=== PATIENT | female | born 1950 | race Caucasian/White ===

== ENCOUNTER → 2017-01-02 | Outpatient (CLI) | payer OTHER ==
[2016-08-10 11:00] VITALS: BP 106/68
[~2017-01-02] MED LIST: ALPR0.254 PO; ALPR1TAB6 PO; AZEL205. NS; BUTA1CAP5 PO; ERGO500027 PO; ESCITALOPRAM OX20 MG PO; FURO20TA3 PO; FURO40TA4 PO; ISOS30TA4 PO; LANS30CA PO; LEXAPRO5 MG PO; LIPA1CAP PO; MECL12.52 PO; MECL25TA3 PO; METH4TAB2 PO; QUIN10TA15 PO; QUIN20TA17 PO; SOTA80TA48 PO; TIZA4CAP3 PO; TIZA4TAB PO; TRAM50TA PO; WARF5TAB7 PO; XOPENEX0.63 MG/3 NEB
--- NOTE | 2017-01-02 15:31 | KCIC ---
Left breast diagnostic ultrasound HISTORY: Asymmetric tissue density in the posterior upper outer left breast seen in the December 23, 2016 mammogram Sonographic examination upper left breast was performed and multiple static images were obtained. There is no focal abnormality. IMPRESSION: Negative examination. Recommend a left mammogram in 6 months to assess stability. These results were given to the patient in person. BI-RADS Category 3: Probably Benign. Electronically signed by: Lambert Gomez III, MD (01/02/2017 3:27 PM) [facility]
--- NOTE | 2017-01-02 15:32 | KCIC ---
History: asymmetric tissue density posterior upper outer left breast on the December 23, 2016 mammogram. Technique: The following digital mammographic additional views were obtained: spot CC spot MLO open mag cc. Computer aided detection was utilized with iCAD Second Look 7.2-H Comparison: April 15, 2013 Findings: The asymmetric tissue density persists but appears to be a normal lymph node. Recommend a left mammogram in 6 months to assess stability. These results were given to the patient in person. BI-RADS Category 3: Probably Benign. These results were given to the patient in person. Patient information is entered into the [facility] reminder system using [employer] with a target due date for the next screening mammogram. The patient will receive a reminder. A mammogram does not have 100% sensitivity and therefore a negative imaging study should not delay further work up of a suspicious abnormality. "Our facility is accredited by the [employer] Mammography Program." Electronically signed by: Lambert Gomez III, MD (01/02/2017 3:29 PM) [facility]
== END | disposition home or self-care (01) ==
LOC: KCIC MAMMO 13:59
PROVIDERS: ATTEND Family Medicine
DX: N64.89 Other specified disorders of breast (principal)
CPT/HCPCS: 76641; G0206; 77065

== ENCOUNTER → 2017-06-11 | Outpatient (CLI) | payer OTHER | END | disposition home or self-care (01) | LOC: KCIC MAMMO 09:43 | DX: N64.89 Other specified disorders of breast (principal) | CPT/HCPCS: 77065; G0279 ==

== ENCOUNTER 2018-04-09 13:45 | Emergency (ER) | payer OTHER ==
[~2018-04-09] VITALS: Ht 165.1 cm; Wt 88.9 kg
[~2018-04-09 13:45] MED LIST changes: +WARF-31 PO; -WARF5TAB7 PO
[2018-04-09 13:55] VITALS: BP 123/72
[2018-04-09] MEDS ORDERED: fentaNYL PF VIAL 100 MCG/2 ML VIAL IV ONE (14:30)
[2018-04-09] MEDS ORDERED: KETOROLAC 30 MG/ML VIAL. IV ONE (14:30)
--- NOTE | 2018-04-09 15:21 | RAD ---
Examination: 4 views of the left knee HISTORY: History of fall on the left knee, pain COMPARISON: None available. FINDINGS: The alignment of the left knee joint grossly appears unremarkable. There is no acute fracture or dislocation identified.No significant knee joint effusion identified IMPRESSION: No acute osseous findings. Electronically signed by: Noe Will MD (04/09/2018 3:19 PM) [facility]
[2018-04-09 16:01] LABS: BASO % 1 % (0-3); EOS # 0.2 x10^3/uL (0.0-0.7); EOS % 3 % (0-3); HEMATOCRIT 39.9 % (36.0-47.0); HEMOGLOBIN 13.3 g/dL (12.0-15.5); LYMPH # 1.7 x10^3/uL (1.0-4.8); LYMPH % 27 % (24-48); MEAN CORPUSCULAR HEMOGLOBIN 30 pg (25-35); MEAN CORPUSCULAR HGB CONC 33 g/dL (31-37); MEAN CORPUSCULAR VOLUME 91 fL (79-100); MONO # 0.6 x10^3/uL (0.0-1.1); MONO % 9 % (0-9); NEUT # 3.8 x10^3uL (1.8-7.7); NEUT % 60 % (31-73); PLATELET COUNT 209 x10^3/uL (140-400); RED BLOOD COUNT 4.38 x10^6/uL (3.50-5.40); RED CELL DISTRIBUTION WIDTH 14.1 % (11.5-14.5); WHITE BLOOD COUNT 6.3 x10^3/uL (4.0-11.0)
[2018-04-09 16:07] LABS: CALCIUM 8.7 mg/dL (8.5-10.1); CREATININE 1.1 mg/dL (0.6-1.0); GFR 49.4; POTASSIUM 3.6 mmol/L (3.5-5.1)
[2018-04-09] MEDS ORDERED: TRAM50TA PO (16:39)
--- NOTE | 2018-04-09 16:39 | PHYS DOC ---
Past Medical History Past Medical History: A-Fib, Anxiety, Depression, GERD, Hypertension, Migraines Additional Past Medical Histor: vertigo, pancrease problems, lupus (SHASHANK URIBE APRN) Past Surgical History: Appendectomy, Cholecystectomy Additional Past Surgical Histo: pacemaker, clean heart cath (SHASHANK URIBE APRN) Alcohol Use: None Drug Use: None (SHASHANK URIBE APRN) Adult General Chief Complaint Chief Complaint: LOWER EXT PAIN HPI HPI Patient is a 67 year old female with history of anxiety, hypertension, depression, A. fib, who presents today complaining of 7 out of 10 pain behind her left knee that radiates to the calf that has been going on for weeks. Patient states she was seen by a disability aide, she states the disability aide did not do anything for her. Patient states today she was taking a shower and her knee buckled up and she fell. Patient denies any loss of consciousness. Patient describes the pain as sharp and intermittent worse on flexion of the knee. (SHASHANK URIBE APRN) Review of Systems Review of Systems Constitutional: Denies fever or chills [] Eyes: Denies change in visual acuity, redness, or eye pain [] HENT: Denies nasal congestion or sore throat [] Respiratory: Denies cough or shortness of breath [] Cardiovascular: No additional information not addressed in HPI [] GI: Denies abdominal pain, nausea, vomiting, bloody stools or diarrhea [] : Denies dysuria or hematuria [] Musculoskeletal: Reports left knee pain radiating to the left calf. Integument: Denies rash or skin lesions [] Neurologic: Denies headache, focal weakness or sensory changes [] All other systems were reviewed and found to be within normal limits, except as documented in this note. (SHASHANK URIBE APRN) Current Medications Current Medications Current Medications Medications (Trade) Dose Ordered Sig/Silverio Start Time Stop Time Status Last Admin Dose Admin Fentanyl Citrate (Fentanyl 2ml Vial) 50 mcg 1X ONCE 04/09/18 14:30 04/09/18 14:31 DC 04/09/18 15:54 50 MCG Ketorolac Tromethamine (Toradol 30mg Vial) 30 mg 1X ONCE 04/09/18 14:30 04/09/18 14:32 DC 04/09/18 15:53 30 MG (KYLE OCHOA MD) Allergies Allergies Allergies Coded Allergies Type Severity Reaction Last Updated Verified Penicillins Allergy Intermediate 04/12/14 Yes acetaminophen Allergy Intermediate 04/12/14 Yes aripiprazole Allergy Intermediate 04/12/14 Yes celecoxib Allergy Intermediate 04/12/14 Yes citalopram Allergy Intermediate 11/24/14 Yes clindamycin Allergy Intermediate 04/12/14 Yes codeine Allergy Intermediate 04/12/14 Yes fluticasone Allergy Intermediate 04/12/14 Yes hydrocodone Allergy Intermediate 04/12/14 Yes levofloxacin Allergy Intermediate 04/12/14 Yes nalbuphine Allergy Intermediate 04/12/14 Yes salmeterol Allergy Intermediate 04/12/14 Yes (KYLE OCHOA MD) Physical Exam Physical Exam Constitutional: Well developed, well nourished, no acute distress, non-toxic appearance. [] HENT: Normocephalic, atraumatic, bilateral external ears normal, oropharynx moist, no oral exudates, nose normal. [] Eyes: PERRLA, EOMI, conjunctiva normal, no discharge. [] Neck: Normal range of motion, no tenderness, supple, no stridor. [] Cardiovascular:Heart rate regular rhythm, no murmur [] Lungs & Thorax: Bilateral breath sounds clear to auscultation [] Abdomen: Bowel sounds normal, soft, no tenderness, no masses, no pulsatile masses. [] Skin: Warm, dry, no erythema, no rash. [] Back: No tenderness, no CVA tenderness. [] Extremities: Left knee with no obvious deformity. Slight tenderness on palpation of the posterior aspect of the knee. Negative Jd sign, negative Janee sign, negative anterior-posterior drawer sign to the knee though pain was elicited during flexion of the knee. Negative Homans sign to the left lower extremity. +2 left pedal pulse. Cap refill less than 2 seconds the left knee. Neurologic: Alert and oriented X 3, normal motor function, normal sensory function, no focal deficits noted. [] Psychologic: Affect normal, judgement normal, mood normal. [] (SHASHANK URIBE APRN) Current Patient Data Vital Signs Vital Signs Date Time Temp Pulse Resp B/P (MAP) Pulse Ox O2 Delivery O2 Flow Rate FiO2 04/09/18 15:54 16 99 Room Air 04/09/18 13:55 98.5 73 123/72 (89) 98.5 (KYLE OCHOA MD) Lab Values Laboratory Tests Test 04/09/18 15:48 White Blood Count 6.3 x10^3/uL (4.0-11.0) Red Blood Count 4.38 x10^6/uL (3.50-5.40) Hemoglobin 13.3 g/dL (12.0-15.5) Hematocrit 39.9 % (36.0-47.0) Mean Corpuscular Volume 91 fL (79-100) Mean Corpuscular Hemoglobin 30 pg (25-35) Mean Corpuscular Hemoglobin Concent 33 g/dL (31-37) Red Cell Distribution Width 14.1 % (11.5-14.5) Platelet Count 209 x10^3/uL (140-400) Neutrophils (%) (Auto) 60 % (31-73) Lymphocytes (%) (Auto) 27 % (24-48) Monocytes (%) (Auto) 9 % (0-9) Eosinophils (%) (Auto) 3 % (0-3) Basophils (%) (Auto) 1 % (0-3) Neutrophils # (Auto) 3.8 x10^3uL (1.8-7.7) Lymphocytes # (Auto) 1.7 x10^3/uL (1.0-4.8) Monocytes # (Auto) 0.6 x10^3/uL (0.0-1.1) Eosinophils # (Auto) 0.2 x10^3/uL (0.0-0.7) Basophils # (Auto) 0.0 x10^3/uL (0.0-0.2) Sodium Level 141 mmol/L (136-145) Potassium Level 3.6 mmol/L (3.5-5.1) Chloride Level 106 mmol/L (98-107) Carbon Dioxide Level 28 mmol/L (21-32) Anion Gap 7 (6-14) Blood Urea Nitrogen 17 mg/dL (7-20) Creatinine 1.1 mg/dL (0.6-1.0) H Estimated GFR (Cockcroft-Gault) 49.4 Glucose Level 91 mg/dL (70-99) Calcium Level 8.7 mg/dL (8.5-10.1) Laboratory Tests 2/14/19 15:48 Laboratory Tests 04/09/18 15:48 (KYLE OCHOA MD) EKG EKG [] (SHASHANK URIBE APRN) Radiology/Procedures Radiology/Procedures [] (SHASHANK URIBE APRN) Course & Med Decision Making Course & Med Decision Making Pertinent Labs and Imaging studies reviewed. (See chart for details) This is a 67-year-old. Patient presented to the ED today with left knee pain radiating to her cough that has been going on for weeks. She also fell on her knee today. Left knee x-rays interpreted by radiologist are negative for any acute findings. Apply regularly read venous Doppler left lower extremity is negative. Patient was provided orthopedic doctor for follow-up as an outpatient. D/c with tramadol. (SHASHANK URIBE APRN) Course & Med Decision Making Staff Physician Addendum: I was working in the ER during the course of this patient's visit. I was available for consultation as needed, but I was not directly involved in the care of this patient. (KYLE OCHOA MD) Dragon Disclaimer Dragon Disclaimer This electronic medical record was generated, in whole or in part, using a voice recognition dictation system. (SHASHANK URIBE APRN) Departure Departure Impression: Primary Impression: Left knee pain Additional Impression: Fall from standing Disposition: 01 HOME, SELF-CARE Condition: STABLE Referrals: TERESITA DOS SANTOS MD (PCP) NEAL AKINS II, MD Follow up in one week Patient Instructions: Fall Prevention and Home Safety, Knee Pain, [id number] Additional Instructions: You were evaluated in the emergency room for knee pain. Your left knee x-ray was negative for any acute findings, your venous Doppler of the left lower extremity was negative for a blood clot. Ice and elevate the extremity. Follow- up with the provided orthopedic doctor or your own doctor in one week. Take the prescribed medications as needed for pain. Scripts Tramadol Hcl (TRAMADOL HCL) 50 Mg Tablet 50 MG PO Q6HRS PRN for PAIN, #30 TAB Prov: SHASHANK URIBE APRN 04/09/18 Problem Qualifiers Primary Impression: Left knee pain Chronicity: acute Qualified Codes: M25.562 - Pain in left knee Additional Impression: Fall from standing Encounter type: initial encounter Qualified Codes: W19.XXXA - Unspecified fall, initial encounter SHASHANK URIBE APRN Apr 09, 2018 16:39 KYLE OCHOA MD Apr 09, 2018 17:38
--- NOTE | 2018-04-10 08:31 | RAD ---
Left lower extremity venous ultrasound, 04/09/2018 : History: Left lower extremity pain Duplex evaluation including grayscale, color flow and spectral Doppler analysis was performed. The femoral and popliteal veins show no filling defects to suggest DVT. The visualized calf veins are unremarkable. IMPRESSION: There is no sonographic evidence of deep vein thrombosis in the left lower extremity Electronically signed by: Emmanuel Fontanez MD (04/10/2018 8:28 AM) [facility]
== END 2018-04-09 16:52 | disposition home or self-care (01) ==
LOC: ER 13:45
DX: M25.562 Pain in left knee (principal); G89.11 Acute pain due to trauma; I48.91 Unspecified atrial fibrillation; K21.9 Gastro-esophageal reflux disease without esophagitis; I10 Essential (primary) hypertension; G43.909 Migraine, unspecified, not intractable, without status migrainosus; M79.605 Pain in left leg; Z95.0 Presence of cardiac pacemaker; Z88.0 Allergy status to penicillin; Z88.1 Allergy status to other antibiotic agents; Z88.5 Allergy status to narcotic agent; Z88.6 Allergy status to analgesic agent; Z88.8 Allergy status to other drugs, medicaments and biological substances; W18.39XA Other fall on same level, initial encounter; Y93.89 Activity, other specified; Y92.89 Other specified places as the place of occurrence of the external cause; Y99.8 Other external cause status
CPT/HCPCS: 36415; 73564; 80048; 85025; 93971; 96374; 96375; 99284; J1885; J3010

== ENCOUNTER → 2018-06-01 | Outpatient (CLI) | payer OTHER ==
--- NOTE | 2018-06-01 17:08 | KCIC ---
Bilateral diagnostic digital mammograms with 3-D tomosynthesis: Reason for examination: Follow-up nodular asymmetric parenchyma. Comparison is made to previous studies dated back to 03/02/2015. Bilateral mammograms in CC and oblique projections were obtained with 2-D imaging and 3-D tomosynthesis imaging on a Siemens Inspiration unit and reviewed on the workstation. Interpretation was made with the benefit of CAD. The skin and nipples show no abnormalities. No abnormal axillary lymph nodes are seen. The breast parenchyma shows scattered fatty and fibroglandular density. (Breast density: Category B.) There continues to be some parenchymal asymmetry posteriorly at the 2:00 C position of the left breast which is stable. There are small intramammary lymph nodes. There are no new dominant masses, suspicious calcifications or architectural distortion. Impression: No evidence of malignancy. Recommend routine screening. BI-RAD Category 2: Benign. "Our facility is accredited by the [employer] Mammography Program." This patient's information has been entered into a reminder system for the patient to be notified with the results of her examination and a target date for the next mammogram. Electronically signed by: Mone Pham MD (06/01/2018 5:05 PM) [facility]
== END | disposition home or self-care (01) ==
LOC: KCIC MAMMO 12:34
PROVIDERS: ATTEND Family Medicine
DX: R92.8 Other abnormal and inconclusive findings on diagnostic imaging of breast (principal)
CPT/HCPCS: 77066; G0279; 77062

== ENCOUNTER → 2019-04-14 | Outpatient (CLI) | payer MEDICARE ==
[~2019-04-14] MED LIST changes: +ASPI325T11 PO; +ERGO400T2 PO; +IBUP-1060 PO; +LEXAPRO20 MG PO; +MECL-75 PO; -MECL12.52 PO; +MECL12.573 PO; -MECL25TA3 PO; +REGADENOSON 0.4 MG/5 ML DISP.SYRIN. IV ONE; -TIZA4TAB PO; +TIZA4TAB2 PO
--- NOTE | 2019-04-15 13:36 | CARD ---
MR#: [id number] Date of Study: 04/14/2019 Ordering Physician: BROOKLYNN BELLE, Referring Physician: BROOKLYNN BELLE, Tech: Delmer Willingham RDCS APPROVED REPORT EXAM: Two-dimensional and M-mode echocardiogram with Doppler and color Doppler. Other Information Quality : AverageHR: 87bpm INDICATION SSS 2D DIMENSIONS RVDd3.1 (2.9-3.5cm)Left Atrium(2D)3.0 (1.6-4.0cm) IVSd1.2 (0.7-1.1cm)Aortic Root(2D)2.7 (2.0-3.7cm) LVDd4.6 (3.9-5.9cm)LVOT Diameter2.1 (1.8-2.4cm) PWd1.2 (0.7-1.1cm)LVDs2.8 (2.5-4.0cm) FS (%) 39.3 %SV68.8 ml Aortic Valve AoV Peak Robert.100.1cm/Katt Peak GR.4.0mmHg LVOT Peak Robert.80.6cm/sAVA (VMAX)2.90cm2 Mitral Valve MV E Tmovkukq21.1cm/sMV DECEL TLYK343rx MV A Oojaqdaa71.4cm/sE/A Ratio0.7 MV A Wnfumgrc368ki Pulmonary Valve PV Peak Czkkhevw22.0cm/s Tricuspid Valve TR P. Jddzajlr826uh/sRAP NDNKKWZR0mjJa TR Peak Gr.94ubBxEIEA31xxDy Pulmonary Vein S1 Oqlskcda88.1cm/sD2 Xwhtxztc83.9cm/s PVa nwopucsb848wshh LEFT VENTRICLE The left ventricle is normal size. There is mild concentric left ventricular hypertrophy. The left ve ntricular systolic function is normal and the ejection fraction is within normal range. The Ejection Fraction is 55-60%. There is normal LV segmental wall motion. Transmitral Doppler flow pattern is Gra de I-abnormal relaxation pattern. There is no ventricular septal defect visualized. RIGHT VENTRICLE The right ventricle is normal size. The right ventricular systolic function is normal. ATRIA The left atrium size is normal. The right atrium size is normal. The interatrial septum is intact wit h no evidence for an atrial septal defect or patent foramen ovale as noted on 2-D or Doppler imaging. AORTIC VALVE The aortic valve is normal in structure and function. Doppler and Color Flow revealed no significant aortic regurgitation. There is no significant aortic valvular stenosis. MITRAL VALVE The mitral valve is normal in structure and function. There is no mitral valve stenosis. Doppler and Color-flow revealed trace to mild mitral regurgitation. TRICUSPID VALVE The tricuspid valve is normal in structure and function. Doppler and Color Flow revealed mild tricusp id regurgitation. PAP is estimated at 23 mmHg. There is no tricuspid valve stenosis. PULMONIC VALVE The pulmonary valve is normal in structure and function. Doppler and Color Flow revealed mild to mode rate pulmonic valvular regurgitation. There is no pulmonic valvular stenosis. GREAT VESSELS The aortic root is normal in size. The ascending aorta is normal in size. The pulmonary artery is nor mal. The IVC is normal in size and collapses >50% with inspiration. PERICARDIAL EFFUSION There is no pleural effusion. There is no evidence of significant pericardial effusion. Critical Notification Critical Value: No <Conclusion> The left ventricle is normal size. The left ventricular systolic function is normal and the ejection fraction is within normal range. The Ejection Fraction is 55-60%. There is mild concentric left ventricular hypertrophy. Doppler and Color Flow revealed no significant aortic regurgitation. There is no significant aortic valvular stenosis. Doppler and Color-flow revealed trace to mild mitral regurgitation. Doppler and Color Flow revealed mild tricuspid regurgitation. PAP is estimated at 23 mmHg. Signed by : Jim Smart MD Electronically Approved : 04/14/2019 13:33:18
--- NOTE | 2019-04-16 12:17 | RAD ---
MR#: [id number] Date of Study: 04/14/2019 Ordering Physician: BROOKLYNN BELLE, Referring Physician: CHENG MINOR Tech: RT Saundra Ramirez) (N) APPROVED REPORT Test Type: Pharmacological Stress Nurse/Tech: Marcela ERVIN Test Indications: Sick Sinus Syndrome Cardiac History: A-fib, SSS, PPM, HTN, See EMR. Medications: Coumadin, See EMR. Medical History: X-Smoker, CVA, See EMR. Resting ECG: Paced Resting Heart Rate: 66 bpm Resting Blood Pressure: 140/87mmHg Pretest Chest Pain: No chest pain Nurse/Tech Notes Lungs diminished throughout, heart tones regular. Consent: The procedure was explained to the patient in lay terms. Informed consent was witnessed. Keegan eout was entered into [employer]. History and Stress Test performed by RT James (Leonardo) (N) Pharm. Details Pharmacologic stress testing was performed using 0.4mg per 5ml of regadenoson given intravenously ove r 7-10 seconds. Stress Symptoms No chest pain or symptoms. POST EXERCISE Reason for Termination: Infusion complete Max HR: 73 bpm Max Blood Pressure: 129/78mmHg Blood Pressure response to exercise: Normal blood pressure response during stress. Heart Rate response to exercise: WNL Chest Pain: No. Arrhythmia: No. ST Change: No. INTERPRETATION Stress EKG Conclusion: No evidence of stress induced EKG changes. Imaging Protocol IMAGE PROTOCOL: Rest Tc-99m/stress Tc-99m 1 day Rest: Stress: Viability: Radiopharm.Tc99m JtzzamonaYp08u Sestamibi Jyir61yRr 32.3mCi Duration 15min. 10min. Img Date 04/14/2019 04/14/2019 Inj-Img Djer10fti. 60min. Rest Admin Site:IV - Left AntecubitalAdministrator:RT James (Leonardo)(N) Stress Admin Site: IV - Left AntecubitalAdministrator: RT Antonella (Leonardo)(N) STRESS DATA End Diast. Vol.67.0mlAv. Heart Rate65.0bpm End Syst. Vol.16.0mlCO Index BSA0.0L/min Myocardial Hhmt174.0gEject. Qwzxqvkm88.0% Stress Rates Pk. Fill Rate3.62EDV/secLVtime Pk. Fill 228.01msec Pk. Empty Rate4.14ESV/secLVtime Pk. Dkfzd022.98msec 1/3 Pk. Fill1.01EDV/sec Stress Scores Regional WT0.00Summed WT1.00 Regional WM0.00Summed WM1.00 LV Perfusion Normal perfusion at stress. Wall Motion Normal wall motion. LV Perf. Quant 17 Seg. SSS0.00 17 Seg. SRS8.00 17 Seg. SDS0.00 Stress Defect Extent (% LAD)0.00Rest Defect Extent (% LAD)18.10Rev. Defect Extent (% LAD)0.00 Stress Defect Extent (% LCX) 0.00Rest Defect Extent (% LCX)26.30Rev. Defect Extent (% LCX)0.00 Stress Defect Extent (% RCA)0.00Rest Defect Extent (% RCA)2.20Rev. Defect Extent (% RCA)0.00 Stress Defect Extent (% LAURA)0.00Rest Defect Extent (% LAURA)15.90Rev. Defect Extent (% LAURA)0.00 Other Information Quality:Fair Risk Assessment: Low Risk Conclusion 1. No evidence of EKG changes with stress testing. 2. Normal perfusion at stress. Rest images are suboptimal due to artifact. 3. Low risk study. 4. EF > 60%. Signed by : Asim Burns, Electronically Approved : 04/16/2019 12:17:20
== END | disposition home or self-care (01) ==
LOC: NM 09:28
PROVIDERS: ATTEND Internal Medicine Cardiovascular Disease
DX: I08.8 Other rheumatic multiple valve diseases (principal); I11.9 Hypertensive heart disease without heart failure; I49.5 Sick sinus syndrome; I48.91 Unspecified atrial fibrillation; Z87.81 Personal history of (healed) traumatic fracture; Z86.73 Personal history of transient ischemic attack (TIA), and cerebral infarction without residual deficits
CPT/HCPCS: 78452; 93017; 93306; A9500; J2785

== ENCOUNTER → 2019-06-25 | Outpatient (CLI) | payer MEDICARE ==
[~2019-06-25] MED LIST changes: -REGADENOSON 0.4 MG/5 ML DISP.SYRIN. IV ONE
--- NOTE | 2019-06-25 15:45 | RAD ---
CT Head W/O Contrast: History: Headache, severe memory loss Comparison: none Axial images were obtained without contrast. The marcos and white matter appears normal and symmetrical for the patients age. There is no mass effect, extraaxial fluid collections or hydrocephalus. There is no gross bleed. There is no focal loss of marcos-white matter distinction to suggest acute ischemia, i.e. stroke. Impression: No acute findings. RS Compliance Statement: One or more of the following individualized dose reduction techniques were utilized for this examination: 1. Automated exposure control 2. Adjustment of the mA and/or kV according to patient size 3. Use of iterative reconstruction technique Electronically signed by: Lambert Gomez III, MD (06/25/2019 3:42 PM) [id number]
== END | disposition home or self-care (01) ==
LOC: CT 14:26
PROVIDERS: ATTEND Family Medicine
DX: G43.909 Migraine, unspecified, not intractable, without status migrainosus (principal)
CPT/HCPCS: 70450

== ENCOUNTER 2019-08-28 13:50 | Emergency (ER) | payer MEDICARE ==
[~2019-08-28] VITALS: Ht 170.2 cm; Wt 67.0 kg
[2019-08-28 14:24] LABS: BASO # 0.1 x10^3/uL (0.0-0.2); BASO % 1 % (0-3); EOS % 1 % (0-3); HEMATOCRIT 37.1 % (36.0-47.0); HEMOGLOBIN 12.9 g/dL (12.0-15.5); LYMPH % 12 % (24-48); MEAN CORPUSCULAR HEMOGLOBIN 32 pg (25-35); MEAN CORPUSCULAR HGB CONC 35 g/dL (31-37); MEAN CORPUSCULAR VOLUME 92 fL (79-100); MONO # 0.5 x10^3/uL (0.0-1.1); MONO % 6 % (0-9); NEUT # 6.9 x10^3/uL (1.8-7.7); NEUT % 81 % (31-73); PLATELET COUNT 184 x10^3/uL (140-400); RED BLOOD COUNT 4.05 x10^6/uL (3.50-5.40); RED CELL DISTRIBUTION WIDTH 14.3 % (11.5-14.5); WHITE BLOOD COUNT 8.5 x10^3/uL (4.0-11.0)
[2019-08-28 14:41] LABS: PROTHROMBIN TIME PATIENT 73.8 SEC (11.7-14.0)
[2019-08-28] MEDS ORDERED: PHENYLEPHRINE 0.5% NASAL SPRAY 15ML BOTTLE. NS ONE (15:15)
[2019-08-28] MEDS ORDERED: ONDANSETRON PF 4 MG/2 ML VIAL. IV ONE (15:15)
--- NOTE | 2019-08-28 16:28 | PHYS DOC ---
Past Medical History Past Medical History: A-Fib, Anxiety, Depression, GERD, Hypertension, Migraines Additional Past Medical Histor: vertigo, pancrease problems, lupus Past Surgical History: Appendectomy, Cholecystectomy Additional Past Surgical Histo: pacemaker, clean heart cath Smoking Status: Former Smoker Alcohol Use: None Drug Use: None General Adult EDM: Chief Complaint: NOSEBLEED HPI: HPI: Patient is a 68 year old male who presents to the emergency department with complaints of bleeding from the left side of her nose. Patient states she awoke with the bleeding. She also reports that her warfarin dose was recently increased from 5 mg a day up to 7.5 mg/day. She has not had her INR rechecked since having the dose of the medication increased. Patient denies any injury to her nose. She denies any headache, vision changes, dizziness, vomiting, abdominal pain, shortness of breath, cough, fever, chest pain, or palpitations. She reports nausea at this time, she thinks it is due to the constant flow of blood down the back of her throat. Patient currently denies any pain. Review of Systems: Review of Systems: Constitutional: Denies fever or chills. [] Eyes: Denies change in visual acuity. [] HENT: Denies sore throat, reports nasal congestion; see HPI [] Respiratory: Denies cough or shortness of breath. [] Cardiovascular: Denies chest pain or edema. [] GI: Denies abdominal pain, vomiting, or diarrhea; see HPI. [] Musculoskeletal: Denies back pain or joint pain. [] Integument: Denies rash. [] Neurologic: Denies headache, focal weakness or sensory changes. [] Psychiatric: Denies depression or anxiety. [] Heart Score: Risk Factors: Risk Factors: DM, Current or recent (<one month) smoker, HTN, HLP, family history of CAD, obesity. Risk Scores: Score 0 - 3: 2.5% MACE over next 6 weeks - Discharge Home Score 4 - 6: 20.3% MACE over next 6 weeks - Admit for Clinical Observation Score 7 - 10: 72.7% MACE over next 6 weeks - Early Invasive Strategies Current Medications: Current Medications Medications (Trade) Dose Ordered Sig/Silverio Start Time Stop Time Status Last Admin Dose Admin Ondansetron HCl (Zofran) 4 mg 1X ONCE 08/28/19 15:15 08/28/19 15:16 DC 08/28/19 15:14 4 MG Phenylephrine HCl (Bobby-Synephrine 0.5% Nasal) 2 spray 1X ONCE 08/28/19 15:15 08/28/19 15:16 DC 08/28/19 15:40 2 SPRAY Allergies: Allergies: Allergies Coded Allergies Type Severity Reaction Last Updated Verified Penicillins Allergy Intermediate 04/12/14 Yes acetaminophen Allergy Intermediate 04/12/14 Yes aripiprazole Allergy Intermediate 04/12/14 Yes celecoxib Allergy Intermediate 04/12/14 Yes citalopram Allergy Intermediate 11/24/14 Yes clindamycin Allergy Intermediate 04/12/14 Yes codeine Allergy Intermediate 04/12/14 Yes fluticasone Allergy Intermediate 04/12/14 Yes hydrocodone Allergy Intermediate 04/12/14 Yes levofloxacin Allergy Intermediate 04/12/14 Yes nalbuphine Allergy Intermediate 04/12/14 Yes salmeterol Allergy Intermediate 04/12/14 Yes Physical Exam: PE: Constitutional: Well developed, well nourished, no acute distress, non-toxic appearance. [] HENT: Normocephalic, atraumatic, bilateral external ears normal, oropharynx moist, no oral exudates; there is blood draining down the left posterior pharynx, no anterior nosebleed, bilateral nasal turbinates are edematous Eyes: PERRLA, EOMI, conjunctiva normal, no discharge. [] Neck: Normal range of motion, no tenderness, supple, no stridor. [] Cardiovascular:Heart rate regular rhythm Lungs & Thorax: Respirations even and unlabored, no retractions, no respiratory distress Skin: Warm, dry, no erythema, no rash. [] Extremities: No cyanosis, ROM intact, no edema. [] Neurologic: Alert and oriented X 3, no focal deficits noted. [] Psychologic: Affect normal, judgement normal, mood normal. [] Current Patient Data: Labs: Laboratory Tests Test 08/28/19 14:13 White Blood Count 8.5 x10^3/uL (4.0-11.0) Red Blood Count 4.05 x10^6/uL (3.50-5.40) Hemoglobin 12.9 g/dL (12.0-15.5) Hematocrit 37.1 % (36.0-47.0) Mean Corpuscular Volume 92 fL (79-100) Mean Corpuscular Hemoglobin 32 pg (25-35) Mean Corpuscular Hemoglobin Concent 35 g/dL (31-37) Red Cell Distribution Width 14.3 % (11.5-14.5) Platelet Count 184 x10^3/uL (140-400) Neutrophils (%) (Auto) 81 % (31-73) H Lymphocytes (%) (Auto) 12 % (24-48) L Monocytes (%) (Auto) 6 % (0-9) Eosinophils (%) (Auto) 1 % (0-3) Basophils (%) (Auto) 1 % (0-3) Neutrophils # (Auto) 6.9 x10^3/uL (1.8-7.7) Lymphocytes # (Auto) 1.0 x10^3/uL (1.0-4.8) Monocytes # (Auto) 0.5 x10^3/uL (0.0-1.1) Eosinophils # (Auto) 0.0 x10^3/uL (0.0-0.7) Basophils # (Auto) 0.1 x10^3/uL (0.0-0.2) Prothrombin Time 73.8 SEC (11.7-14.0) H Prothrombin Time INR 8.6 (0.8-1.1) *H Laboratory Tests 08/28/19 14:13 Vital Signs: Vital Signs Date Time Temp Pulse Resp B/P (MAP) Pulse Ox O2 Delivery O2 Flow Rate FiO2 08/28/19 16:05 64 13 98 08/28/19 13:53 98.4 152/89 (110) Room Air 98.4 EKG: EKG: [] Radiology/Procedures: Radiology/Procedures: [] Course & Med Decision Making: Course & Med Decision Making Pertinent Labs and Imaging studies reviewed. (See chart for details) Patient is a 68-year-old female who presents to the emergency department with complaints of left-sided nasal bleed, she reported a recent increase in her warfarin dosage. CBC is unremarkable, PT/INR reveals a INR of 8.6. I administered phenylephrine nasal spray into the left side of the patient's nose then inserted a Rhino Rocket for a nasal packing into the left nare. The nasal bleeding ceased, patient tolerated procedure well, no complications. I encouraged patient to hold her Coumadin for the next 2 days, follow-up with her primary care doctor on Friday to have the nasal packing removed and her INR rechecked. Advised the patient and her family member to return to the emergency room if the bleeding returns or if her symptoms worsen. Patient and her daughter verbalized an understanding of home care, medications, follow-up, and return to ED instructions and were in agreement with the plan of care. [] Dragon Disclaimer: Dragon Disclaimer: This electronic medical record was generated, in whole or in part, using a voice recognition dictation system. Departure Departure Impression: Primary Impression: Acute posterior epistaxis Additional Impression: Supratherapeutic INR Disposition: HOME, SELF-CARE Condition: STABLE Referrals: TERESITA DOS SANTOS MD (PCP) Patient Instructions: Nosebleed, [id number], Warfarin Coagulopathy Additional Instructions: DO NOT TAKE YOUR WARFARIN FOR THE NEXT 2 DAYS. Follow up with your primary care doctor on Friday to have the nasal packing removed and your INR rechecked. Today your INR was 8.6. Return to the ER if your symptoms worsen. Justicifation of Admission Dx: Justifications for Admission: Justification of Admission Dx: N/A AJAY DYSON APRN Aug 28, 2019 16:28
[2019-08-28 16:35] VITALS: BP 155/79
== END 2019-08-28 16:42 | disposition home or self-care (01) ==
LOC: ER 13:50
DX: R04.0 Epistaxis (principal); R79.1 Abnormal coagulation profile; I48.91 Unspecified atrial fibrillation; K21.9 Gastro-esophageal reflux disease without esophagitis; I10 Essential (primary) hypertension; G43.909 Migraine, unspecified, not intractable, without status migrainosus; M32.9 Systemic lupus erythematosus, unspecified; Z87.891 Personal history of nicotine dependence; Z95.0 Presence of cardiac pacemaker; Z88.0 Allergy status to penicillin; Z88.1 Allergy status to other antibiotic agents; Z88.5 Allergy status to narcotic agent; Z88.6 Allergy status to analgesic agent; Z88.8 Allergy status to other drugs, medicaments and biological substances
CPT/HCPCS: 30905; 36415; 85025; 85610; 96374; 99285; J2405

== ENCOUNTER 2019-08-31 10:20 | Inpatient (IN) | payer MEDICARE ==
[~2019-08-31] VITALS: Ht 165.1 cm; Wt 86.4 kg
--- NOTE | 2019-08-31 10:47 | PHYS DOC ---
Past Medical History Past Medical History: A-Fib, Anxiety, Depression, GERD, Hypertension, Migraines Additional Past Medical Histor: vertigo, pancrease problems, lupus Past Surgical History: Appendectomy, Cholecystectomy Additional Past Surgical Histo: pacemaker, clean heart cath Smoking Status: Former Smoker Alcohol Use: None Drug Use: None General Adult EDM: Chief Complaint: ABNORMAL LABS HPI: HPI: Patient is a 68 year old female who presents with patient was here on August 27 for a nosebleed. At that time it was found that her INR was 8.6. Patient is on warfarin for her A. fib and she does have a pacemaker. Patient was told not to take her warfarin. Patient has not taken her warfarin for 3 days. Patient went to her primary care today Dr. Dos Santos of which her INR is still above 8. She was sent here to the emergency room. Patient still has a nasal balloon in place in the left nare. Patient was not placed on any antibiotics. Patient grandson is in the room and states that she has been getting dizzy and falling against the wall at times and at times cannot get her words together. He states that he thinks she knows what she wants to say but is having a hard time getting her words together. He states that she is just been walking or shuffling around the house and that is not normal for her. Patient states she will get dizzy at times and more so recently since August 27. She states she is also had a headache off and on but this time does not have a headache. Patient denies fever, chest pain, shortness of breath, abdominal pain, nausea, vomiting, diarrhea, cough, numbness or tingling, focal weakness, vision changes. Patient does have a histo ry of vertigo, migraine, hypertension, lupus, GERD, anxiety, pacemaker, A. fib, depression, appendectomy, cholecystectomy. She denies any pain at this time. Review of Systems: Review of Systems: Constitutional: Denies fever or chills. [] Eyes: Denies change in visual acuity. [] HENT: Denies nasal congestion or sore throat. Left nare nasal balloon in place. [] Respiratory: Denies cough or shortness of breath. [] Cardiovascular: Denies chest pain or edema. [] GI: Denies abdominal pain, nausea, vomiting, bloody stools or diarrhea. [] : Denies dysuria. [] Musculoskeletal: Denies back pain or joint pain. [] Integument: Denies rash. [] Neurologic: headache, dizziness, cant get words together at times. Denies focal weakness or sensory changes. [] Endocrine: Denies polyuria or polydipsia. [] Lymphatic: Denies swollen glands. [] Psychiatric: Denies depression or anxiety. [] Heart Score: Risk Factors: Risk Factors: DM, Current or recent (<one month) smoker, HTN, HLP, family history of CAD, obesity. Risk Scores: Score 0 - 3: 2.5% MACE over next 6 weeks - Discharge Home Score 4 - 6: 20.3% MACE over next 6 weeks - Admit for Clinical Observation Score 7 - 10: 72.7% MACE over next 6 weeks - Early Invasive Strategies Allergies: Allergies: Allergies Coded Allergies Type Severity Reaction Last Updated Verified Penicillins Allergy Intermediate 04/12/14 Yes acetaminophen Allergy Intermediate 04/12/14 Yes aripiprazole Allergy Intermediate 04/12/14 Yes celecoxib Allergy Intermediate 04/12/14 Yes citalopram Allergy Intermediate 11/24/14 Yes clindamycin Allergy Intermediate 04/12/14 Yes codeine Allergy Intermediate 04/12/14 Yes fluticasone Allergy Intermediate 04/12/14 Yes hydrocodone Allergy Intermediate 04/12/14 Yes levofloxacin Allergy Intermediate 04/12/14 Yes nalbuphine Allergy Intermediate 04/12/14 Yes salmeterol Allergy Intermediate 04/12/14 Yes Physical Exam: PE: Constitutional: Well developed, well nourished, no acute distress, non-toxic appearance. [] HENT: Normocephalic, atraumatic, bilateral external ears normal, oropharynx moist, no oral exudates, nose normal. [] Eyes: PERRLA, EOMI, conjunctiva normal, no discharge. [] Neck: Normal range of motion, no tenderness, supple, no stridor. [] Cardiovascular:Heart rate regular rhythm, no murmur [] Lungs & Thorax: Bilateral breath sounds clear to auscultation [] Abdomen: Bowel sounds normal, soft, no tenderness, no masses, no pulsatile masses. [] Skin: Warm, dry, no erythema, no rash. [] Back: No tenderness, no CVA tenderness. [] Extremities: No tenderness, no cyanosis, no clubbing, ROM intact, no edema. [] Neurologic: Alert and oriented X 3, normal motor function, normal sensory function, no focal deficits noted. [] Psychologic: Affect normal, judgement normal, mood normal. [] EKG: EK and read by Dr. Leslie as sinus rhythm and no STEMI [] Radiology/Procedures: Radiology/Procedures: [] Impression: [facility] [address] [place] [address] IMAGING REPORT Signed PATIENT: MALLY BENAVIDES ACCOUNT: [id number] : 1950 LOCATION: ER AGE: 68 SEX: F EXAM STATUS: REG ER ORD. PHYSICIAN: CHEYENNE CHANDLER APRN REASON: dizziness, headache PROCEDURE: CT HEAD AND MAXILLOFACIAL WO EXAM: CT Head without IV contrast INDICATION: Reason: dizziness, headache / Spl. Instructions: / History: TECHNIQUE: Multi-detector row CT images were obtained of the head without the use of IV contrast. All CT scans performed at this facility utilize dose optimization techniques as appropriate to the exam, including the following: Automated exposure control and adjustment of the mA and/or KV according to patient size (this includes techniques or standardized protocols for targeted exams where dose is indication/reason for exam). COMPARISON: 06/25/2019 FINDINGS: BRAIN PARENCHYMA: No evidence of acute intraparenchymal hemorrhage or infarct. Mild generalized parenchymal volume loss and white matter low density compatible chronic ischemic microvascular changes present. VENTRICLES & EXTRA-AXIAL SPACES: Ventricles are within normal limits. Basilar cisterns are patent. No pathologic extra-axial fluid collection or mass. ORBITS: Orbital contents are unremarkable. SINUSES: Visualized paranasal sinuses and mastoid air cells are clear. OSSEOUS & SOFT TISSUES: Calvarium and skull base are intact. IMPRESSION: No acute intracranial pathology. EXAM: CT Maxillofacial with IV contrast INDICATION: Reason: dizziness, headache / Spl. Instructions: / History: TECHNIQUE: Multi-detector row CT images were obtained through the maxillofacial region with the use of IV contrast. Post-processing reconstructed images were obtained for interpretation. All CT scans performed at this facility utilize dose optimization techniques as appropriate to the exam, including the following: Automated exposure control and adjustment of the mA and/or KV according to patient size (this includes techniques or standardized protocols for targeted exams where dose is indication/reason for exam). IV CONTRAST: Administered COMPARISON: None FINDINGS: OSSEOUS: No evidence of fracture or bone destruction. VISUALIZED INTRACRANIAL STRUCTURES: Unremarkable. ORBITS: Orbital contents are unremarkable.. SINUSES: Visualized paranasal sinuses and mastoid air cells are clear. There is a pledget in the left nasal cavity.. SOFT TISSUES: Unremarkable. IMPRESSION: Unremarkable CT of the maxillofacial structures.. EXAM: CT HEAD AND MAXILLOFACIAL WO, PORTABLE CHEST 1V INDICATION: Reason: dizziness, headache / Spl. Instructions: / History: . TECHNIQUE: Single view COMPARISON: None FINDINGS: Left chest dual-chamber pacemaker. The heart size is upper normal in size.. The great vessels appear unremarkable. There is no hilar or mediastinal mass. The lungs are clear. There is no pleural effusion or pneumothorax. There are no significant osseous abnormalities. IMPRESSION: No active cardiopulmonary disease. Electronically signed by: Curtis Orozco MD (08/31/2019 11:45 AM) [id number] DICTATED and SIGNED BY: CURTIS OROZCO MD DATE: 08/31/19 1145 Course & Med Decision Making: Course & Med Decision Making Pertinent Labs and Imaging studies reviewed. (See chart for details) Alert and oriented. Speaks in full clear sentences but again has trouble finding words or putting words together correctly. No slurring. Ambulatory with a steady gait. Patient is moving all extremities equally and with equal strengths. Abdomen is soft and nontender. Patient does not have any bruising. Patient's nose is not using any blood in nasal bone is still in place. Afebrile. Lungs are clear to auscultation all lobes. No Nystagmus. PERRLA. No extremity edema. NIH a 3. When asked where she was patient starts making the "P" sound and then said "[place]" in her stated do mean [place] that she says "yes yes that". When patient was shown the pictures to describe she kept saying " wires there are wires everywhere and then eventually said Oh there is seating and there is a woman and a cookie jar." When patient was trying to say cactus she kept making the "c" sound over and over again but never actually got the word out. When she saw the hemic pitcher she would say "swinging", "you put your feet up", " jumping Serg". Patient also did not know her age or her birthday. Grandson states that she is been doing this over the last 2 months, but thinks is getting worse over the last 2 days. INR is 7.6. Dr. Leslie had me give her 10mg of vitamin K. CT head shows no acute findings. Patient is admitted for altered mental status, dysphasia and elevate d INR. I have spoken to Dr. Ghotra for admission. [] Dragon Disclaimer: Dragon Disclaimer: This electronic medical record was generated, in whole or in part, using a voice recognition dictation system. NIHSS Stroke Scale NIH Stroke Scale: NIH Stroke Scale Response (Comments) Value Level of Consciousness: 0 Alert/Responsive 0 LOC Questions: 1 Answers one correctly 1 LOC Commands: 0 Performs both tasks 0 Best Gaze: 0 Normal 0 Visual: 0 No visual loss 0 Facial Palsy: 0 Normal, symmetrical 0 Motor - Left Arm 0 No drift 0 Motor - Right Arm 0 No drift 0 Motor - Left Leg 0 No drift 0 Motor: Right Leg 0 No drift 0 Limb Ataxia: 0 Absent 0 Sensory: 0 No loss 0 Best Language: 1 Mild to mod aphasia 1 Dysathria: 1 Mild to moderate 1 Extinction and Inattention: 0 Normal 0 Total 3 Departure Departure Impression: Primary Impression: Elevated INR Additional Impressions: Dysphagia Qualified Codes: R13.10 - Dysphagia, unspecified AMS (altered mental status) Qualified Codes: R41.82 - Altered mental status, unspecified Disposition: ADMITTED INPATIENT Admitting Physician: AVIVA Condition: STABLE Referrals: TERESITA DOS SANTOS MD (PCP) Justicifation of Admission Dx: Justifications for Admission: Justification of Admission Dx: Yes Comments: ams, elevated INR CHEYENNE CHANDLER [employer] Aug 31, 2019 10:47
[2019-08-31 11:07] LABS: BASO # 0.1 x10^3/uL (0.0-0.2); BASO % 1 % (0-3); EOS # 0.1 x10^3/uL (0.0-0.7); EOS % 2 % (0-3); HEMATOCRIT 36.8 % (36.0-47.0); HEMOGLOBIN 12.8 g/dL (12.0-15.5); LYMPH # 1.2 x10^3/uL (1.0-4.8); LYMPH % 20 % (24-48); MEAN CORPUSCULAR HEMOGLOBIN 32 pg (25-35); MEAN CORPUSCULAR HGB CONC 35 g/dL (31-37); MEAN CORPUSCULAR VOLUME 91 fL (79-100); MONO # 0.4 x10^3/uL (0.0-1.1); MONO % 7 % (0-9); NEUT # 4.5 x10^3/uL (1.8-7.7); NEUT % 71 % (31-73); PLATELET COUNT 186 x10^3/uL (140-400); RED BLOOD COUNT 4.02 x10^6/uL (3.50-5.40); RED CELL DISTRIBUTION WIDTH 14.5 % (11.5-14.5); WHITE BLOOD COUNT 6.3 x10^3/uL (4.0-11.0)
[2019-08-31 11:21] LABS: CALCIUM 8.6 mg/dL (8.5-10.1); CREATININE 1.3 mg/dL (0.6-1.0); GFR 40.6; POTASSIUM 3.7 mmol/L (3.5-5.1)
[2019-08-31 11:26] LABS: ALBUMIN 3.3 g/dL (3.4-5.0); TOTAL BILIRUBIN 0.6 mg/dL (0.2-1.0); TOTAL PROTEIN 6.6 g/dL (6.4-8.2)
[2019-08-31 11:28] LABS: PROTHROMBIN TIME PATIENT 66.5 SEC (11.7-14.0)
[2019-08-31 11:48] LABS: BILIRUBIN,URINE NEGATIVE (NEG); COLOR,URINE YELLOW; NITRITE,URINE NEGATIVE (NEG); PROTEIN,URINE NEGATIVE (NEG-TRACE); UROBILINOGEN,URINE 0.2 mg/dL (0.2 mg/dL)
--- NOTE | 2019-08-31 11:48 | RAD ---
EXAM: CT Head without IV contrast INDICATION: Reason: dizziness, headache / Spl. Instructions: / History: TECHNIQUE: Multi-detector row CT images were obtained of the head without the use of IV contrast. All CT scans performed at this facility utilize dose optimization techniques as appropriate to the exam, including the following: Automated exposure control and adjustment of the mA and/or KV according to patient size (this includes techniques or standardized protocols for targeted exams where dose is indication/reason for exam). COMPARISON: 06/25/2019 FINDINGS: BRAIN PARENCHYMA: No evidence of acute intraparenchymal hemorrhage or infarct. Mild generalized parenchymal volume loss and white matter low density compatible chronic ischemic microvascular changes present. VENTRICLES & EXTRA-AXIAL SPACES: Ventricles are within normal limits. Basilar cisterns are patent. No pathologic extra-axial fluid collection or mass. ORBITS: Orbital contents are unremarkable. SINUSES: Visualized paranasal sinuses and mastoid air cells are clear. OSSEOUS & SOFT TISSUES: Calvarium and skull base are intact. IMPRESSION: No acute intracranial pathology. EXAM: CT Maxillofacial with IV contrast INDICATION: Reason: dizziness, headache / Spl. Instructions: / History: TECHNIQUE: Multi-detector row CT images were obtained through the maxillofacial region with the use of IV contrast. Post-processing reconstructed images were obtained for interpretation. All CT scans performed at this facility utilize dose optimization techniques as appropriate to the exam, including the following: Automated exposure control and adjustment of the mA and/or KV according to patient size (this includes techniques or standardized protocols for targeted exams where dose is indication/reason for exam). IV CONTRAST: Administered COMPARISON: None FINDINGS: OSSEOUS: No evidence of fracture or bone destruction. VISUALIZED INTRACRANIAL STRUCTURES: Unremarkable. ORBITS: Orbital contents are unremarkable.. SINUSES: Visualized paranasal sinuses and mastoid air cells are clear. There is a pledget in the left nasal cavity.. SOFT TISSUES: Unremarkable. IMPRESSION: Unremarkable CT of the maxillofacial structures.. EXAM: CT HEAD AND MAXILLOFACIAL WO, PORTABLE CHEST 1V INDICATION: Reason: dizziness, headache / Spl. Instructions: / History: . TECHNIQUE: Single view COMPARISON: None FINDINGS: Left chest dual-chamber pacemaker. The heart size is upper normal in size.. The great vessels appear unremarkable. There is no hilar or mediastinal mass. The lungs are clear. There is no pleural effusion or pneumothorax. There are no significant osseous abnormalities. IMPRESSION: No active cardiopulmonary disease. Electronically signed by: Ashlyn Orozco MD (08/31/2019 11:45 AM) [id number]
[2019-08-31] MEDS ORDERED: AZITHRMYCN 500MG IVPB FOR OMNI 250 ML IV ONE (12:00)
[2019-08-31] MEDS ORDERED: PHYTONADIONE (VIT K1) IV 10 MG in IV DEXTROSE 5% 50 ML IV ONE (12:00)
[2019-08-31 12:08] LABS: BACTERIA,URINE FEW /HPF (0-FEW); CLARITY,URINE HAZY; RBC,URINE OCC /HPF (0-2)
[2019-08-31 12:09] LABS: SQUAMOUS EPITHELIAL CELL,UR FEW /LPF
[2019-08-31] MEDS ORDERED: ONDANSETRON PF 4 MG/2 ML VIAL. IV PRN (12:15)
--- NOTE | 2019-08-31 12:22 | EKG ---
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
--- NOTE | 2019-08-31 15:39 | PDOC1 ---
History and Physical Date of Admission Date of Admission DATE: 08/31/19 TIME: 15:38 Source Source: Chart review, Patient History of Present Illness History of Present Illness Ms. Reis, is a 68 year old female seenin ER August 27 for a nosebleed, still bleeding has been to primary care INR is still up, Dr. Eduardo Christiansen sent her to the ER. She is on warfarin for her A. fib and she does have a pacemaker, has not taken coumadin for 2 days, is on sotalol. reports that she has been getting dizzy and falling against the wall at times and at times cannot get her words together. Past Medical History Past Medical History vertigo, migraine, hypertension, lupus, GERD, anxiety, pacemaker, A. fib, depression, appendectomy, cholecystectomy. Cardiovascular: AFIB, HTN, Syncope, Hyperlipidemia, Other GI: GERD Heme/Onc: Anemia NOS, Other Psych: Anxiety Musculoskeletal: Osteoarthritis Rheumatologic: Other Family History Family History: No Significant Social History Smoke: No ALCOHOL: none Current Problem List Problem List Problems Medical Problems: (1) AMS (altered mental status) Status: Acute (2) Dysphagia Status: Acute (3) Elevated INR Status: Acute Current Medications Current Medications Current Medications Phytonadione 10 mg/Dextrose 51 ml @ 102 mls/hr 1X ONCE IV Last administered on 08/31/19at 13:34; Start 08/31/19 at 12:00; Stop 08/31/19 at 12:29; Status DC Azithromycin 250 ml @ 250 mls/hr 1X ONCE IV Last administered on 08/31/19at 12:00; Start 08/31/19 at 12:00; Stop 08/31/19 at 12:59; Status DC Ondansetron HCl (Zofran) 4 mg PRN Q8HRS PRN IV NAUSEA/VOMITING; Start 08/31/19 at 12:15; Stop 09/01/19 at 12:14 Active Scripts Active Reported Ibuprofen 800 Mg Tablet 800 Mg PO PRN Q6HRS PRN Vitamin D2 (Ergocalciferol (Vitamin D2)) 400 Unit Tablet 400 Unit PO Lexapro (Escitalopram Oxalate) 20 Mg Tablet 20 Mg PO DAILY Aspirin Ec (Aspirin) 325 Mg Tablet. 325 Mg PO Medrol (Methylprednisolone) 4 Mg Tab.ds.pk 1 Pkg PO UD Pscrgwzrrk-Bqt-Qszfjele Cap (Butalbital/Aspirin/Caffeine) 1 Each Capsule 1 Each PO PRN QID PRN Meclizine Hcl 25 Mg Tablet 25 Mg PO PRN Q6HRS PRN Tizanidine Hcl 4 Mg Tablet 1 Mg PO PRN TID PRN Warfarin Sodium 5 Mg Tablet 10 Mg PO Q FRIDAY AND FRI Furosemide 20 Mg Tablet 20 Mg PO DAILY Quinapril Hcl 20 Mg Tablet 20 Mg PO DAILY Isosorbide Mononitrate Er (Isosorbide Mononitrate) 30 Mg Tab.er.24h 30 Mg PO DAILY Escitalopram Oxalate 20 Mg Tablet 20 Mg PO DAILY Warfarin Sodium 5 Mg Tablet 1 Tab PO QMTUTHFSAT Sotalol (Sotalol Hcl) 80 Mg Tablet 40 Mg PO BID Meclizine Hcl 12.5 Mg Tablet 25 Mg PO TID PRN Zenpep Dr 25,000 Units Capsule (Lipase/Protease/Amylase) 1 Each Capsule.dr 25,000 Each PO TID Lansoprazole 30 Mg Capsule.dr 1 Cap PO DAILY Allergies Allergies: Coded Allergies: Penicillins (Verified Allergy, Intermediate, 04/12/14) acetaminophen (Verified Allergy, Intermediate, 04/12/14) aripiprazole (Verified Allergy, Intermediate, 04/12/14) celecoxib (Verified Allergy, Intermediate, 04/12/14) citalopram (Verified Allergy, Intermediate, 11/24/14) clindamycin (Verified Allergy, Intermediate, 04/12/14) codeine (Verified Allergy, Intermediate, 04/12/14) fluticasone (Verified Allergy, Intermediate, 04/12/14) hydrocodone (Verified Allergy, Intermediate, 04/12/14) levofloxacin (Verified Allergy, Intermediate, 04/12/14) nalbuphine (Verified Allergy, Intermediate, 04/12/14) salmeterol (Verified Allergy, Intermediate, 04/12/14) ROS General: YES: Chills, Fatigue PSYCHOLOGICAL ROS: YES: Anxiety, Sleep disturbances; No: Behavioral Disorder, Concentration difficultie, Decreased libido, Depression, Disorientation, Hallucinations, Hostility, Irritablity, Memory difficulties, Mood Swings, Obsessive thoughts, Other Eyes: No Blurry vision, No Decreased vision, No Double vision, No Dry eyes, No Excessive tearing, No Eye Pain, No Itchy Eyes, No Loss of vision, No Photophobia, No Scotomata, No Uses contacts, No Uses glasses, No Other HEENT: No: Heacaches, Visual Changes, Hearing change, Nasal congestion, Nasal discharge, Oral lesions, Sinus pain, Sore Throat, Epistaxis, Sneezing, Snoring, Tinnitus, Vertigo, Vocal changes, Other Respiratory: No: Cough, Hemoptysis, Orthopnea, Pleuritic Pain, Shortness of breath, SOB with excertion, Sputum Changes, Stridor, Tachypnea, Wheezing, Other Cardiovascular: No Chest Pain, No Palpitations, No Orthopnea, No Paroxysmal Noc. Dyspnea, No Edema, No Lt Headedness, No Other Gastrointestinal: No Nausea, No Vomiting, No Abdominal Pain, No Diarrhea, No Constipation, No Melena, No Hematochezia, No Other Genitourinary: No Dysuria, No Frequency, No Incontinence, No Hematuria, No Retention, No Discharge, No Urgency, No Pain, No Flank Pain, No Other, No , No , No , No , No , No , No Musculoskeletal: No Gait Disturbance, No Joint Pain, No Joint Stiffness, No Joint Swelling, No Muscle Pain, No Muscular Weakness, No Pain In:, No Swelling In:, No Other Neurological: Yes Confusion, Yes Weakness; No Behavorial Changes, No Bowel/Bladder ControlChng, No Dizziness, No Gait Disturbance, No Headaches, No Impaired Coord/balance, No Memory Loss, No Numbness/Tingling, No Seizures, No Speech Problems, No Tremors, No Visual Changes, No Other Skin: Yes Other (nose bleed); No Dry Skin, No Eczema, No Hair Changes, No Lumps, No Mole Changes, No Mottling, No Nail Changes, No Pruritus, No Rash, No Skin Lesion Changes, No Acne Physical Exam General: Alert, Cooperative, No acute distress HEENT: Mucous membr. moist/pink, Other (nose jet in place for bleeding) Lungs: Clear to auscultation Heart: no gallops Abdomen: Soft Neuro: Normal speech, Normal tone Psych/Mental Status: Mental status NL, Mood NL Vitals Vitals Vital Signs Date Time Temp Pulse Resp B/P (MAP) Pulse Ox O2 Delivery O2 Flow Rate FiO2 08/31/19 14:45 64 154/93 (113) 97 Room Air 08/31/19 10:48 97.9 18 97.9 Labs Labs Laboratory Tests Test 08/31/19 10:55 08/31/19 11:40 White Blood Count 6.3 x10^3/uL (4.0-11.0) Red Blood Count 4.02 x10^6/uL (3.50-5.40) Hemoglobin 12.8 g/dL (12.0-15.5) Hematocrit 36.8 % (36.0-47.0) Mean Corpuscular Volume 91 fL (79-100) Mean Corpuscular Hemoglobin 32 pg (25-35) Mean Corpuscular Hemoglobin Concent 35 g/dL (31-37) Red Cell Distribution Width 14.5 % (11.5-14.5) Platelet Count 186 x10^3/uL (140-400) Neutrophils (%) (Auto) 71 % (31-73) Lymphocytes (%) (Auto) 20 % (24-48) Monocytes (%) (Auto) 7 % (0-9) Eosinophils (%) (Auto) 2 % (0-3) Basophils (%) (Auto) 1 % (0-3) Neutrophils # (Auto) 4.5 x10^3/uL (1.8-7.7) Lymphocytes # (Auto) 1.2 x10^3/uL (1.0-4.8) Monocytes # (Auto) 0.4 x10^3/uL (0.0-1.1) Eosinophils # (Auto) 0.1 x10^3/uL (0.0-0.7) Basophils # (Auto) 0.1 x10^3/uL (0.0-0.2) Prothrombin Time 66.5 SEC (11.7-14.0) Prothromb Time International Ratio 7.6 (0.8-1.1) Sodium Level 143 mmol/L (136-145) Potassium Level 3.7 mmol/L (3.5-5.1) Chloride Level 106 mmol/L (98-107) Carbon Dioxide Level 32 mmol/L (21-32) Anion Gap 5 (6-14) Blood Urea Nitrogen 20 mg/dL (7-20) Creatinine 1.3 mg/dL (0.6-1.0) Estimated GFR (Cockcroft-Gault) 40.6 BUN/Creatinine Ratio 15 (6-20) Glucose Level 92 mg/dL (70-99) Calcium Level 8.6 mg/dL (8.5-10.1) Total Bilirubin 0.6 mg/dL (0.2-1.0) Aspartate Amino Transf (AST/SGOT) 18 U/L (15-37) Alanine Aminotransferase (ALT/SGPT) 17 U/L (14-59) Alkaline Phosphatase 84 U/L (46-116) Troponin I Quantitative 0.028 ng/mL (0.000-0.055) Total Protein 6.6 g/dL (6.4-8.2) Albumin 3.3 g/dL (3.4-5.0) Albumin/Globulin Ratio 1.0 (1.0-1.7) Urine Collection Type Unknown Urine Color Yellow Urine Clarity Hazy Urine pH 6.0 (<5.0-8.0) Urine Specific [place] 1.010 (1.000-1.030) Urine Protein Negative mg/dL (NEG-TRACE) Urine Glucose (UA) Negative mg/dL (NEG) Urine Ketones (Stick) Negative mg/dL (NEG) Urine Blood Negative (NEG) Urine Nitrite Negative (NEG) Urine Bilirubin Negative (NEG) Urine Urobilinogen Dipstick 0.2 mg/dL (0.2 mg/dL) Urine Leukocyte Esterase Trace (NEG) Urine RBC Occ /HPF (0-2) Urine WBC 5-10 /HPF (0-4) Urine Squamous Epithelial Cells Few /LPF Urine Bacteria Few /HPF (0-FEW) Urine Mucus Mod /LPF Laboratory Tests Test 08/31/19 10:55 08/31/19 11:40 White Blood Count 6.3 x10^3/uL (4.0-11.0) Red Blood Count 4.02 x10^6/uL (3.50-5.40) Hemoglobin 12.8 g/dL (12.0-15.5) Hematocrit 36.8 % (36.0-47.0) Mean Corpuscular Volume 91 fL (79-100) Mean Corpuscular Hemoglobin 32 pg (25-35) Mean Corpuscular Hemoglobin Concent 35 g/dL (31-37) Red Cell Distribution Width 14.5 % (11.5-14.5) Platelet Count 186 x10^3/uL (140-400) Neutrophils (%) (Auto) 71 % (31-73) Lymphocytes (%) (Auto) 20 % (24-48) Monocytes (%) (Auto) 7 % (0-9) Eosinophils (%) (Auto) 2 % (0-3) Basophils (%) (Auto) 1 % (0-3) Neutrophils # (Auto) 4.5 x10^3/uL (1.8-7.7) Lymphocytes # (Auto) 1.2 x10^3/uL (1.0-4.8) Monocytes # (Auto) 0.4 x10^3/uL (0.0-1.1) Eosinophils # (Auto) 0.1 x10^3/uL (0.0-0.7) Basophils # (Auto) 0.1 x10^3/uL (0.0-0.2) Prothrombin Time 66.5 SEC (11.7-14.0) Prothromb Time International Ratio 7.6 (0.8-1.1) Sodium Level 143 mmol/L (136-145) Potassium Level 3.7 mmol/L (3.5-5.1) Chloride Level 106 mmol/L (98-107) Carbon Dioxide Level 32 mmol/L (21-32) Anion Gap 5 (6-14) Blood Urea Nitrogen 20 mg/dL (7-20) Creatinine 1.3 mg/dL (0.6-1.0) Estimated GFR (Cockcroft-Gault) 40.6 BUN/Creatinine Ratio 15 (6-20) Glucose Level 92 mg/dL (70-99) Calcium Level 8.6 mg/dL (8.5-10.1) Total Bilirubin 0.6 mg/dL (0.2-1.0) Aspartate Amino Transf (AST/SGOT) 18 U/L (15-37) Alanine Aminotransferase (ALT/SGPT) 17 U/L (14-59) Alkaline Phosphatase 84 U/L (46-116) Troponin I Quantitative 0.028 ng/mL (0.000-0.055) Total Protein 6.6 g/dL (6.4-8.2) Albumin 3.3 g/dL (3.4-5.0) Albumin/Globulin Ratio 1.0 (1.0-1.7) Urine Collection Type Unknown Urine Color Yellow Urine Clarity Hazy Urine pH 6.0 (<5.0-8.0) Urine Specific [place] 1.010 (1.000-1.030) Urine Protein Negative mg/dL (NEG-TRACE) Urine Glucose (UA) Negative mg/dL (NEG) Urine Ketones (Stick) Negative mg/dL (NEG) Urine Blood Negative (NEG) Urine Nitrite Negative (NEG) Urine Bilirubin Negative (NEG) Urine Urobilinogen Dipstick 0.2 mg/dL (0.2 mg/dL) Urine Leukocyte Esterase Trace (NEG) Urine RBC Occ /HPF (0-2) Urine WBC 5-10 /HPF (0-4) Urine Squamous Epithelial Cells Few /LPF Urine Bacteria Few /HPF (0-FEW) Urine Mucus Mod /LPF VTE Prophylaxis Ordered VTE Prophylaxis Devices: Yes VTE Pharmacological Prophylaxi: Contraindicated Assessment/Plan Assessment/Plan new expressive aphasia, over the past few days, with dizzyness and poor coordination, consult neuro recurrent nose bleed supratherapeutic INR, vitamin K given AFib, chronic diastolic CHF HTN s/p Pacemaker placement. Justicifation of Admission Dx: Justifications for Admission: Justification of Admission Dx: Yes STEFANI REYEZ MD Aug 31, 2019 15:39
[2019-08-31] MEDS ORDERED: tiZANidine 4 MG TABLET. PO PRN (15:45)
[2019-08-31 16:49] VITALS: BP 149/77
[2019-08-31] MEDS: LIPASE/PROTEAS/AMYLAS 10/32/42 CAPSULE.DR. PO SCH (17:11)
--- NOTE | 2019-08-31 18:45 | NUR ---
Pt arrived on unit by wheelchair from ED at 1630. Pt denies pain at this time, meal tray ordered. Sinus rhythm on the monitor. Pt poor historian of history due to expressive aphasia. This RN unable to reconcile home meds due to pt being unable to recall and no list present. Pt states daughter knows her home meds, will pass along to night RN.
[2019-08-31 19:59] VITALS: BP 133/82
[2019-08-31] MEDS: SOTALOL 80 MG TABLET. PO SCH (21:40)
[2019-08-31 23:40] VITALS: BP 133/92
[2019-09-01 03:37] VITALS: BP 165/93
[2019-09-01 04:52] LABS: BASO % 0 % (0-3); EOS # 0.1 x10^3/uL (0.0-0.7); EOS % 2 % (0-3); HEMATOCRIT 35.3 % (36.0-47.0); HEMOGLOBIN 12.4 g/dL (12.0-15.5); LYMPH # 1.5 x10^3/uL (1.0-4.8); LYMPH % 29 % (24-48); MEAN CORPUSCULAR HEMOGLOBIN 32 pg (25-35); MEAN CORPUSCULAR HGB CONC 35 g/dL (31-37); MEAN CORPUSCULAR VOLUME 91 fL (79-100); MONO # 0.4 x10^3/uL (0.0-1.1); MONO % 7 % (0-9); NEUT # 3.3 x10^3/uL (1.8-7.7); NEUT % 62 % (31-73); PLATELET COUNT 170 x10^3/uL (140-400); RED BLOOD COUNT 3.88 x10^6/uL (3.50-5.40); RED CELL DISTRIBUTION WIDTH 14.2 % (11.5-14.5); WHITE BLOOD COUNT 5.3 x10^3/uL (4.0-11.0)
[2019-09-01 04:58] LABS: PROTHROMBIN TIME PATIENT 18.9 SEC (11.7-14.0)
[2019-09-01 05:03] LABS: CALCIUM 8.9 mg/dL (8.5-10.1); CREATININE 0.9 mg/dL (0.6-1.0); GFR 62.1; POTASSIUM 3.5 mmol/L (3.5-5.1)
[2019-09-01 07:50] VITALS: BP 158/83
[2019-09-01] MEDS: PANTOPRAZOLE 40 MG TABLET.DR. PO SCH (07:52)
[2019-09-01] MEDS: LIPASE/PROTEAS/AMYLAS 10/32/42 CAPSULE.DR. PO SCH ×3 (07:52→16:50)
[2019-09-01] MEDS ORDERED: NON FORMULARY ITEM (Escitalopram Oxalate 20 MG) PO SCH (09:00)
[2019-09-01] MEDS: LISINOPRIL 20 MG TABLET PO SCH (09:13)
[2019-09-01] MEDS: ISOSORBIDE MONONITRATE ER 30 MG TAB.ER.24H PO SCH (09:13)
[2019-09-01] MEDS: FUROSEMIDE 20 MG TABLET PO SCH (09:14)
[2019-09-01] MEDS: SOTALOL 80 MG TABLET. PO SCH ×2 (09:15→21:00)
--- NOTE | 2019-09-01 10:01 | RAD ---
DOPPLER CAROTID BILAT History: Reason: CVA, aphasia / Spl. Instructions: / History: COMPARISON: None Technique: Duplex sonography of the cervical portion of both carotid arteries was performed. Real-time grayscale, color flow Doppler, and Doppler spectral waveform analysis is performed. PQRS Compliance Statement - Stenosis calculations for CT, MR and conventional angiography are based upon measurement of the distal ICA diameter in accordance with the NASCET methodology. Stenosis calculations for carotid ultrasound studies are derived from validated velocity criteria which are known to correlate with the NASCET methodology. Findings: Right side: Peak systolic flow velocity of the CCA is 73 cm/sec. Peak systolic flow velocity of the ICA is 82 cm/sec. The ICA/CCA ratio is 1.1. Peak end diastolic flow velocity of the ICA is 24 cm/sec. The peak systolic velocity of the ECA is 54 cm/sec. No significant plaque formation is identified, Left side: Peak systolic flow velocity of the CCA is 67 cm/sec. Peak systolic flow velocity of the ICA is 82 cm/sec. The ICA/CCA ratio is 1.2. Peak end diastolic flow velocity of the ICA is 27 cm/sec. Peak systolic flow velocity of the ECA is 61 cm/sec. No significant plaque formation is identified. Vertebral arteries: Bilateral vertebral arteries demonstrate antegrade flow. IMPRESSION: 1. No hemodynamically significant internal carotid artery stenosis. Electronically signed by: Merrick Gregorio DO (09/01/2019 9:58 AM) [id number]
[2019-09-01 11:29] VITALS: BP 137/96
--- NOTE | 2019-09-01 11:51 | PDOC ---
[employer] PROGRESS NOTE Chief Complaint Chief Complaint Epistaxis New expressive aphasia dizzyness and poor coordination Supratherapeutic INR AFib, chronic diastolic CHF HTN s/p Pacemaker placement. History of Present Illness History of Present Illness 09/01/2019 Patient seen and examined She has problems getting her words Discussed with RN Chart reviewed She still has a packing in her left nares Vitals/I&O Vitals/I&O: Vital Signs Date Time Temp Pulse Resp B/P (MAP) Pulse Ox O2 Delivery O2 Flow Rate FiO2 09/01/19 11:29 98.2 63 18 137/96 (110) 98 Room Air 98.2 I & O 08/31/19 08/31/19 09/01/19 15:00 23:00 07:00 Intake Total 600 ml 240 ml Balance 600 ml 240 ml Physical Exam General: Alert, Cooperative, mild distress, Other (Very anxious that she cannot get her words out) Heart: Regular rate, Normal S1 Lungs: Clear Abdomen: Soft Extremities: No clubbing Skin: No rashes Labs Labs: Laboratory Tests Test 09/01/19 03:55 White Blood Count 5.3 x10^3/uL (4.0-11.0) Red Blood Count 3.88 x10^6/uL (3.50-5.40) Hemoglobin 12.4 g/dL (12.0-15.5) Hematocrit 35.3 % (36.0-47.0) Mean Corpuscular Volume 91 fL (79-100) Mean Corpuscular Hemoglobin 32 pg (25-35) Mean Corpuscular Hemoglobin Concent 35 g/dL (31-37) Red Cell Distribution Width 14.2 % (11.5-14.5) Platelet Count 170 x10^3/uL (140-400) Neutrophils (%) (Auto) 62 % (31-73) Lymphocytes (%) (Auto) 29 % (24-48) Monocytes (%) (Auto) 7 % (0-9) Eosinophils (%) (Auto) 2 % (0-3) Basophils (%) (Auto) 0 % (0-3) Neutrophils # (Auto) 3.3 x10^3/uL (1.8-7.7) Lymphocytes # (Auto) 1.5 x10^3/uL (1.0-4.8) Monocytes # (Auto) 0.4 x10^3/uL (0.0-1.1) Eosinophils # (Auto) 0.1 x10^3/uL (0.0-0.7) Basophils # (Auto) 0.0 x10^3/uL (0.0-0.2) Prothrombin Time 18.9 SEC (11.7-14.0) Prothromb Time International Ratio 1.6 (0.8-1.1) Sodium Level 144 mmol/L (136-145) Potassium Level 3.5 mmol/L (3.5-5.1) Chloride Level 109 mmol/L (98-107) Carbon Dioxide Level 28 mmol/L (21-32) Anion Gap 7 (6-14) Blood Urea Nitrogen 15 mg/dL (7-20) Creatinine 0.9 mg/dL (0.6-1.0) Estimated GFR (Cockcroft-Gault) 62.1 Glucose Level 96 mg/dL (70-99) Calcium Level 8.9 mg/dL (8.5-10.1) Assessment and Plan Assessmemt and Plan Problems Medical Problems: (1) AMS (altered mental status) Status: Acute (2) Dysphagia Status: Acute (3) Elevated INR Status: Acute Epistaxis New expressive aphasia dizzyness and poor coordination Supratherapeutic INR AFib, chronic diastolic CHF HTN s/p Pacemaker placement. Plan PT OT speech therapy Neurology consultation Trend her INR Hope to DC the nasal packing soon Home meds Full code Comment Review of Relevant I have reviewed the following items gege (where applicable) has been applied. Medications: Current Medications Medications (Trade) Dose Ordered Sig/Silverio Route PRN Reason Start Time Stop Time Status Last Admin Dose Admin Phytonadione 10 mg/Dextrose 51 ml @ 102 mls/hr 1X ONCE IV 08/31/19 12:00 08/31/19 12:29 DC 08/31/19 13:34 Azithromycin 250 ml @ 250 mls/hr 1X ONCE IV 08/31/19 12:00 08/31/19 12:59 DC 08/31/19 12:00 Furosemide (Lasix) 20 mg DAILY PO 09/01/19 09:00 09/01/19 09:14 Isosorbide Mononitrate (Imdur) 30 mg DAILY PO 09/01/19 09:00 09/01/19 09:13 Sotalol HCl (Betapace) 40 mg BID PO 08/31/19 21:00 09/01/19 09:15 Pantoprazole Sodium (Protonix) 40 mg DAILYAC PO 09/01/19 07:30 09/01/19 07:52 Amylase/Lipase/ Protease (Zenpep 10,000) 2 cap TIDWMEALS PO 08/31/19 17:00 09/01/19 07:52 Lisinopril (Prinivil) 20 mg DAILY PO 09/01/19 09:00 09/01/19 09:13 Justicifation of Admission Dx: Justifications for Admission: Justification of Admission Dx: Yes PANCHITO POLLACK III DO Sep 01, 2019 11:51
--- NOTE | 2019-09-01 12:41 | NUR ---
SW following. Spoke with RN and reviewed chart. Spoke with pt who has word finding difficulties but is able to make needs known with simple questions. ADALBERTO reviewed PT recommendation for SNU. Pt agreeable. ADALBERTO completed Patient Choice of Vendor form but did call and LVM for family to coordinate care. ADALBERTO phoned and faxed SNU referral to [facility], , (fax). ADALBERTO requested RN order COVID test per SNU placement. Pt on room air and oral medications. ADALBERTO to continue following. Addendum: 09/01/19 at 1248 by NAVARRO GLOVER Confirmed with Polina with [facility] that referral was received. [facility]ter[facility]'s pt insurance.
--- NOTE | 2019-09-01 12:42 | PDOC2 ---
NEUROLOGY CONSULT Date of Admission Date of Admission DATE: 09/01/19 TIME: 11:35 Reason for Consult Reason for Consult: Possible stroke Referring Physician Referring Physician: Dr. Ghotra PCP: Dr. Christiansen Source Source: Chart review, Patient History of Present Illness History of Present Illness The patient is a 68-year-old right-handed female whom I've seen in the past for migraines. She is on warfarin for atrial fibrillation and has a pacemaker. She went to the emergency department on August 27 for a nose bleed, and the bleeding has continued. Her INR is elevated. For the last 2 or 3 days, she has had trouble getting her words of, has been dizzy, and falling against the wall. She has had a stroke in the past but does not remember any details and there is no history of seizure. Past Medical History Cardiovascular: AFIB, HTN CENTRAL NERVOUS SYSTEM: Migraine, TIA, Vertigo GI: Diverticulosis, Other (Pancreatitis, diarrhea) Psych: Anxiety, Depression Musculoskeletal: low back pain, Osteoarthritis Rheumatologic: Fibromyalgia, Other ( lupus) Past Surgical History Past Surgical History: Pacemaker, Cholecystectomy, Hysterectomy, Other ( cardiac cath) Family History Family History: Cancer Social History Social History , no alcohol or tobacco Current Medications Current Medications Current Medications Phytonadione 10 mg/Dextrose 51 ml @ 102 mls/hr 1X ONCE IV Last administered on 08/31/19at 13:34; Start 08/31/19 at 12:00; Stop 08/31/19 at 12:29; Status DC Azithromycin 250 ml @ 250 mls/hr 1X ONCE IV Last administered on 08/31/19at 12:00; Start 08/31/19 at 12:00; Stop 08/31/19 at 12:59; Status DC Ondansetron HCl (Zofran) 4 mg PRN Q8HRS PRN IV NAUSEA/VOMITING; Start 08/31/19 at 12:15; Stop 09/01/19 at 12:14 Furosemide (Lasix) 20 mg DAILY PO Last administered on 09/01/19at 09:14; Start 09/01/19 at 09:00 Isosorbide Mononitrate (Imdur) 30 mg DAILY PO Last administered on 09/01/19at 09:13; Start 09/01/19 at 09:00 Sotalol HCl (Betapace) 40 mg BID PO Last administered on 09/01/19at 09:15; Start 08/31/19 at 21:00 Tizanidine HCl (Zanaflex) 1 mg PRN TID PRN PO MUSCLE SPASMS; Start 08/31/19 at 15:45 Acetaminophen/ Butalbital/ Caffeine (Fioricet) 1 tab PRN Q6HRS PRN PO MIGRAINE HEADACHE; Start 09/01/19 at 11:30 Non-Formulary Medication (Escitalopram Oxalate ) 20 mg DAILY PO ; Start 09/01/19 at 09:00; Stop 09/01/19 at 11:28; Status DC Pantoprazole Sodium (Protonix) 40 mg DAILYAC PO Last administered on 09/01/19at 07:52; Start 09/01/19 at 07:30 Amylase/Lipase/ Protease (Zenpep 10,000) 2 cap TIDWMEALS PO Last administered on 09/01/19at 07:52; Start 08/31/19 at 17:00 Lisinopril (Prinivil) 20 mg DAILY PO Last administered on 09/01/19at 09:13; Start 09/01/19 at 09:00 Active Scripts Active Reported Ibuprofen 800 Mg Tablet 800 Mg PO PRN Q6HRS PRN Vitamin D2 (Ergocalciferol (Vitamin D2)) 400 Unit Tablet 400 Unit PO Lexapro (Escitalopram Oxalate) 20 Mg Tablet 20 Mg PO DAILY Aspirin Ec (Aspirin) 325 Mg Tablet.dr 325 Mg PO Medrol (Methylprednisolone) 4 Mg Tab.ds.pk 1 Pkg PO UD Kmaznposak-Ecc-Xhmpnlkm Cap (Butalbital/Aspirin/Caffeine) 1 Each Capsule 1 Each PO PRN QID PRN Meclizine Hcl 25 Mg Tablet 25 Mg PO PRN Q6HRS PRN Tizanidine Hcl 4 Mg Tablet 1 Mg PO PRN TID PRN Warfarin Sodium 5 Mg Tablet 10 Mg PO Q FRIDAY AND FRI Furosemide 20 Mg Tablet 20 Mg PO DAILY Quinapril Hcl 20 Mg Tablet 20 Mg PO DAILY Isosorbide Mononitrate Er (Isosorbide Mononitrate) 30 Mg Tab.er.24h 30 Mg PO DAILY Escitalopram Oxalate 20 Mg Tablet 20 Mg PO DAILY Warfarin Sodium 5 Mg Tablet 1 Tab PO QMTUTHFSAT Sotalol (Sotalol Hcl) 80 Mg Tablet 40 Mg PO BID Meclizine Hcl 12.5 Mg Tablet 25 Mg PO TID PRN Joelle Kang 25,000 Units Capsule (Lipase/Protease/Amylase) 1 Each Capsule.dr 25,000 Each PO TID Lansoprazole 30 Mg Capsule. 1 Cap PO DAILY Allergies Allergies: Coded Allergies: Penicillins (Verified Allergy, Intermediate, 04/12/14) acetaminophen (Verified Allergy, Intermediate, 04/12/14) aripiprazole (Verified Allergy, Intermediate, 04/12/14) celecoxib (Verified Allergy, Intermediate, 04/12/14) citalopram (Verified Allergy, Intermediate, 11/24/14) clindamycin (Verified Allergy, Intermediate, 04/12/14) codeine (Verified Allergy, Intermediate, 04/12/14) fluticasone (Verified Allergy, Intermediate, 04/12/14) hydrocodone (Verified Allergy, Intermediate, 04/12/14) levofloxacin (Verified Allergy, Intermediate, 04/12/14) nalbuphine (Verified Allergy, Intermediate, 04/12/14) salmeterol (Verified Allergy, Intermediate, 04/12/14) ROS Review of System Negative for fever, chills, weight loss, shortness of breath, chest pain, indigestion, hematochezia, melena, and dysuria. Full 14-point review of systems is negative. Physical Exam Physical Examination General: Well-developed, well-nourished white female in no acute distress HEENT: Normocephalic andatraumatic. She has packing in her left nares. Temporal arteriespulsatile and nontender. Neck: Supple without bruit, no meningismus Musculoskeletal: Stability:see neurologic. Gait exam:see neurologic. Tone:see neurologic.Strength:see neurologic. Neurological: Mental Status:orientation, memory, attention span/concentration, language, fund of knowledge: some expressive aphasia. Cranial Nerves:Pupils equal and reactive to light, extraocular movements areintact, visual beltrán are full to confrontation. Facial sensation is normal. There is no facial asymmetry. Vestibulo-ocular reflex is intact. Palate elevates and tongue protrudes in midline. All other cranial related problems are negative except as mentioned before.Reflexes:2+ and symmetric with flexor plantar responses. Motor:5/5 strength with normal tone and bulk. Coordination:Finger-nose finger and xfdi-pa-wyem testing are normal. Rapid alternating movements and fine finger movements are intact. Gait: not tested. Sensory:Normal pinprick, vibration, light touch, proprioception. Vitals VITALS Vital Signs Date Time Temp Pulse Resp B/P (MAP) Pulse Ox O2 Delivery O2 Flow Rate FiO2 09/01/19 11:29 98.2 63 18 137/96 (110) 98 Room Air 98.2 Labs Labs Laboratory Tests Test 08/31/19 10:55 08/31/19 11:40 09/01/19 03:55 White Blood Count 6.3 x10^3/uL (4.0-11.0) 5.3 x10^3/uL (4.0-11.0) Red Blood Count 4.02 x10^6/uL (3.50-5.40) 3.88 x10^6/uL (3.50-5.40) Hemoglobin 12.8 g/dL (12.0-15.5) 12.4 g/dL (12.0-15.5) Hematocrit 36.8 % (36.0-47.0) 35.3 % (36.0-47.0) Mean Corpuscular Volume 91 fL (79-100) 91 fL (79-100) Mean Corpuscular Hemoglobin 32 pg (25-35) 32 pg (25-35) Mean Corpuscular Hemoglobin Concent 35 g/dL (31-37) 35 g/dL (31-37) Red Cell Distribution Width 14.5 % (11.5-14.5) 14.2 % (11.5-14.5) Platelet Count 186 x10^3/uL (140-400) 170 x10^3/uL (140-400) Neutrophils (%) (Auto) 71 % (31-73) 62 % (31-73) Lymphocytes (%) (Auto) 20 % (24-48) 29 % (24-48) Monocytes (%) (Auto) 7 % (0-9) 7 % (0-9) Eosinophils (%) (Auto) 2 % (0-3) 2 % (0-3) Basophils (%) (Auto) 1 % (0-3) 0 % (0-3) Neutrophils # (Auto) 4.5 x10^3/uL (1.8-7.7) 3.3 x10^3/uL (1.8-7.7) Lymphocytes # (Auto) 1.2 x10^3/uL (1.0-4.8) 1.5 x10^3/uL (1.0-4.8) Monocytes # (Auto) 0.4 x10^3/uL (0.0-1.1) 0.4 x10^3/uL (0.0-1.1) Eosinophils # (Auto) 0.1 x10^3/uL (0.0-0.7) 0.1 x10^3/uL (0.0-0.7) Basophils # (Auto) 0.1 x10^3/uL (0.0-0.2) 0.0 x10^3/uL (0.0-0.2) Prothrombin Time 66.5 SEC (11.7-14.0) 18.9 SEC (11.7-14.0) Prothromb Time International Ratio 7.6 (0.8-1.1) 1.6 (0.8-1.1) Sodium Level 143 mmol/L (136-145) 144 mmol/L (136-145) Potassium Level 3.7 mmol/L (3.5-5.1) 3.5 mmol/L (3.5-5.1) Chloride Level 106 mmol/L (98-107) 109 mmol/L (98-107) Carbon Dioxide Level 32 mmol/L (21-32) 28 mmol/L (21-32) Anion Gap 5 (6-14) 7 (6-14) Blood Urea Nitrogen 20 mg/dL (7-20) 15 mg/dL (7-20) Creatinine 1.3 mg/dL (0.6-1.0) 0.9 mg/dL (0.6-1.0) Estimated GFR (Cockcroft-Gault) 40.6 62.1 BUN/Creatinine Ratio 15 (6-20) Glucose Level 92 mg/dL (70-99) 96 mg/dL (70-99) Calcium Level 8.6 mg/dL (8.5-10.1) 8.9 mg/dL (8.5-10.1) Total Bilirubin 0.6 mg/dL (0.2-1.0) Aspartate Amino Transf (AST/SGOT) 18 U/L (15-37) Alanine Aminotransferase (ALT/SGPT) 17 U/L (14-59) Alkaline Phosphatase 84 U/L (46-116) Troponin I Quantitative 0.028 ng/mL (0.000-0.055) Total Protein 6.6 g/dL (6.4-8.2) Albumin 3.3 g/dL (3.4-5.0) Albumin/Globulin Ratio 1.0 (1.0-1.7) Urine Collection Type Unknown Urine Color Yellow Urine Clarity Hazy Urine pH 6.0 (<5.0-8.0) Urine Specific [place] 1.010 (1.000-1.030) Urine Protein Negative mg/dL (NEG-TRACE) Urine Glucose (UA) Negative mg/dL (NEG) Urine Ketones (Stick) Negative mg/dL (NEG) Urine Blood Negative (NEG) Urine Nitrite Negative (NEG) Urine Bilirubin Negative (NEG) Urine Urobilinogen Dipstick 0.2 mg/dL (0.2 mg/dL) Urine Leukocyte Esterase Trace (NEG) Urine RBC Occ /HPF (0-2) Urine WBC 5-10 /HPF (0-4) Urine Squamous Epithelial Cells Few /LPF Urine Bacteria Few /HPF (0-FEW) Urine Mucus Mod /LPF Laboratory Tests Test 08/31/19 11:40 09/01/19 03:55 Urine Collection Type Unknown Urine Color Yellow Urine Clarity Hazy Urine pH 6.0 (<5.0-8.0) Urine Specific [place] 1.010 (1.000-1.030) Urine Protein Negative mg/dL (NEG-TRACE) Urine Glucose (UA) Negative mg/dL (NEG) Urine Ketones (Stick) Negative mg/dL (NEG) Urine Blood Negative (NEG) Urine Nitrite Negative (NEG) Urine Bilirubin Negative (NEG) Urine Urobilinogen Dipstick 0.2 mg/dL (0.2 mg/dL) Urine Leukocyte Esterase Trace (NEG) Urine RBC Occ /HPF (0-2) Urine WBC 5-10 /HPF (0-4) Urine Squamous Epithelial Cells Few /LPF Urine Bacteria Few /HPF (0-FEW) Urine Mucus Mod /LPF White Blood Count 5.3 x10^3/uL (4.0-11.0) Red Blood Count 3.88 x10^6/uL (3.50-5.40) Hemoglobin 12.4 g/dL (12.0-15.5) Hematocrit 35.3 % (36.0-47.0) Mean Corpuscular Volume 91 fL (79-100) Mean Corpuscular Hemoglobin 32 pg (25-35) Mean Corpuscular Hemoglobin Concent 35 g/dL (31-37) Red Cell Distribution Width 14.2 % (11.5-14.5) Platelet Count 170 x10^3/uL (140-400) Neutrophils (%) (Auto) 62 % (31-73) Lymphocytes (%) (Auto) 29 % (24-48) Monocytes (%) (Auto) 7 % (0-9) Eosinophils (%) (Auto) 2 % (0-3) Basophils (%) (Auto) 0 % (0-3) Neutrophils # (Auto) 3.3 x10^3/uL (1.8-7.7) Lymphocytes # (Auto) 1.5 x10^3/uL (1.0-4.8) Monocytes # (Auto) 0.4 x10^3/uL (0.0-1.1) Eosinophils # (Auto) 0.1 x10^3/uL (0.0-0.7) Basophils # (Auto) 0.0 x10^3/uL (0.0-0.2) Prothrombin Time 18.9 SEC (11.7-14.0) Prothromb Time International Ratio 1.6 (0.8-1.1) Sodium Level 144 mmol/L (136-145) Potassium Level 3.5 mmol/L (3.5-5.1) Chloride Level 109 mmol/L (98-107) Carbon Dioxide Level 28 mmol/L (21-32) Anion Gap 7 (6-14) Blood Urea Nitrogen 15 mg/dL (7-20) Creatinine 0.9 mg/dL (0.6-1.0) Estimated GFR (Cockcroft-Gault) 62.1 Glucose Level 96 mg/dL (70-99) Calcium Level 8.9 mg/dL (8.5-10.1) Images Images CT Head without IV contrast INDICATION: Reason: dizziness, headache / Spl. Instructions: / History: TECHNIQUE: Multi-detector row CT images were obtained of the head without the use of IV contrast. All CT scans performed at this facility utilize dose optimization techniques as appropriate to the exam, including the following: Automated exposure control and adjustment of the mA and/or KV according to patient size (this includes techniques or standardized protocols for targeted exams where dose is indication/reason for exam). COMPARISON: 06/25/2019 FINDINGS: BRAIN PARENCHYMA: No evidence of acute intraparenchymal hemorrhage or infarct. Mild generalized parenchymal volume loss and white matter low density compatible chronic ischemic microvascular changes present. VENTRICLES & EXTRA-AXIAL SPACES: Ventricles are within normal limits. Basilar cisterns are patent. No pathologic extra-axial fluid collection or mass. ORBITS: Orbital contents are unremarkable. SINUSES: Visualized paranasal sinuses and mastoid air cells are clear. OSSEOUS & SOFT TISSUES: Calvarium and skull base are intact. IMPRESSION: No acute intracranial pathology. EXAM: CT Maxillofacial with IV contrast INDICATION: Reason: dizziness, headache / Spl. Instructions: / History: TECHNIQUE: Multi-detector row CT images were obtained through the maxillofacial region with the use of IV contrast. Post-processing reconstructed images were obtained for interpretation. All CT scans performed at this facility utilize dose optimization techniques as appropriate to the exam, including the following: Automated exposure control and adjustment of the mA and/or KV according to patient size (this includes techniques or standardized protocols for targeted exams where dose is indication/reason for exam). IV CONTRAST: Administered COMPARISON: None FINDINGS: OSSEOUS: No evidence of fracture or bone destruction. VISUALIZED INTRACRANIAL STRUCTURES: Unremarkable. ORBITS: Orbital contents are unremarkable.. SINUSES: Visualized paranasal sinuses and mastoid air cells are clear. There is a pledget in the left nasal cavity.. SOFT TISSUES: Unremarkable. IMPRESSION: Unremarkable CT of the maxillofacial structures.. DOPPLER CAROTID BILAT History: Reason: CVA, aphasia / Spl. Instructions: / History: COMPARISON: None Technique: Duplex sonography of the cervical portion of both carotid arteries was performed. Real-time grayscale, color flow Doppler, and Doppler spectral waveform analysis is performed. PQRS Compliance Statement - Stenosis calculations for CT, MR and conventional angiography are based upon measurement of the distal ICA diameter in accordance with the NASCET methodology. Stenosis calculations for carotid ultrasound studies are derived from validated velocity criteria which are known to correlate with the NASCET methodology. Findings: Right side: Peak systolic flow velocity of the CCA is 73 cm/sec. Peak systolic flow velocity of the ICA is 82 cm/sec. The ICA/CCA ratio is 1.1. Peak end diastolic flow velocity of the ICA is 24 cm/sec. The peak systolic velocity of the ECA is 54 cm/sec. No significant plaque formation is identified, Left side: Peak systolic flow velocity of the CCA is 67 cm/sec. Peak systolic flow velocity of the ICA is 82 cm/sec. The ICA/CCA ratio is 1.2. Peak end diastolic flow velocity of the ICA is 27 cm/sec. Peak systolic flow velocity of the ECA is 61 cm/sec. No significant plaque formation is identified. Vertebral arteries: Bilateral vertebral arteries demonstrate antegrade flow. IMPRESSION: 1. No hemodynamically significant internal carotid artery stenosis. Assessment/Plan Assessment/Plan Impression: I do suspect a small left frontal infarct causing expressive aphasia, no other focal findings on exam other she's had symptoms of dizziness and ataxia. Pre-existing vertigo problems Prior migraine headaches On chronic warfarin for atrial fibrillation with supratherapeutic INR, sometimes this can induce a paradoxical hypercoaguable state Status-post pacemaker placed in 2011, probably not MRI compatible Recommendations: Carotid Doppler studies, done, negative I do not think of cartogram will help with management, she is already on anticoagulation Establish normal INR, consider use of novel oral anticoagulant agent. Speech therapy and other rehabilitation modalities Repeat head CT tomorrow. Thank you for letting me help with the patient's care. BENOIT RUFFIN MD Sep 01, 2019 12:42
--- NOTE | 2019-09-01 13:02 | NUR ---
Bedside swallow and communication evaluations completed. Please refer to full reports in intervention section. Swallowing: appears functional and safe for modified diet of soft d/t pt currently w/o upper denture and lower partial. Communication: Pt presents w/ moderate aphasia w/ expressive and receptive language deficits, word-finding impairment and paraphasias. Suspect mild underlying cognitive/memory deficits that can be more fully assessed when language deficits improve. Recommendations: Modify diet to soft d/t absent upper denture and lower partial, CONSTRUCTION CARPENTER f/u for speech/communication deficits, will need CONSTRUCTION CARPENTER f/u at discharge location.
[2019-09-01] MEDS: ALPRAZolam 0.5 MG TABLET PO PRN ×2 (13:45→21:10)
[2019-09-01 15:09] VITALS: BP 158/59
[2019-09-01] MEDS: BUTALB/APAP/CAFEIN 50/325/40MG TABLET. PO PRN (16:50)
[2019-09-01] MEDS ORDERED: IBUP-1060 PO (18:15)
[2019-09-01] MEDS ORDERED: DOXE10CA PO (18:17)
[2019-09-01] MEDS ORDERED: ALPR1TAB6 PO (18:24)
--- NOTE | 2019-09-01 18:27 | NUR ---
This RN spoke with pt's daughter, Darshana at [phone] in regards to pt's home medications. Pt's daughter able to report some of pt's home medications to this RN. This RN reconciled medications that pt's daughter was certain that the pt takes. Pt's daughter said she would "look in her medication tub" to verify other medications that pt possibly takes. Will await daughter's return phone call.
[2019-09-01 19:55] VITALS: BP 148/86
[2019-09-02 03:42] VITALS: BP 146/82
[2019-09-02 05:36] LABS: CHOLESTEROL/HDL RATIO 2.9
[2019-09-02 07:14] VITALS: BP 157/87
[2019-09-02] MEDS: BUTALB/APAP/CAFEIN 50/325/40MG TABLET. PO PRN (07:15)
[2019-09-02] MEDS: PANTOPRAZOLE 40 MG TABLET.DR. PO SCH (07:49)
--- NOTE | 2019-09-02 08:19 | RAD ---
CT Head without contrast 09/02/2019 8:00 AM Indication: Reason: Suspect left frontal stroke, aphasia, can't have MRI, F/U from 08/30 study / Spl. Instructions: / History: Comparison: CT head August 31, 2019. CT head June 25, 2019. Findings: No intracranial hemorrhage is seen. No evidence of subacute territorial infarct is identified. Mild patchy areas of deep white matter hypoattenuation are seen, which while nonspecific, most commonly reflect changes of chronic small vessel disease. Mild age-related atrophic changes are noted. No abnormal extra axial fluid collection is identified. No mass effect or midline shift is seen. No acute osseous abnormalities are seen. Impression: 1. No acute intracranial process identified 2. Mild senescent atrophic changes, and mild of chronic small vessel disease as described CT DOSING PQRS STATEMENT: One or more of the following individualized dose reduction techniques were utilized for this examination: 1. Automated exposure control 2. Adjustment of the mA and/or kV according to patient size 3. Use of iterative reconstruction technique Electronically signed by: Iván Berry MD (09/02/2019 8:16 AM) [id number]
[2019-09-02] MEDS: SOTALOL 80 MG TABLET. PO SCH (08:26)
[2019-09-02] MEDS: LISINOPRIL 20 MG TABLET PO SCH (08:26)
[2019-09-02] MEDS: LIPASE/PROTEAS/AMYLAS 10/32/42 CAPSULE.DR. PO SCH ×2 (08:26→12:35)
[2019-09-02] MEDS: FUROSEMIDE 20 MG TABLET PO SCH (08:27)
[2019-09-02] MEDS: ISOSORBIDE MONONITRATE ER 30 MG TAB.ER.24H PO SCH (08:27)
[2019-09-02 11:03] VITALS: BP 129/86
--- NOTE | 2019-09-02 11:13 | SNU/HH DC ---
DISCHARGE WITH HOME HEALTH DISCHARGE INFORMATION: Final Diagnosis: Problems Medical Problems: (1) AMS (altered mental status) Status: Acute (2) Dysphagia Status: Acute (3) Elevated INR Status: Acute Condition on Discharge: Stable CODE STATUS: Code Status: Full HOME HEALTH: Face to Face: I certify this patient is under my care and that I, or a nurse practitioner or physician's assistant finance manager working with me, had a face to face encounter that meets the physician face to face encounter requirements with this patient on []. Medical Complications: Other (Debility with some mild expressive aphasia recent epistaxis) Retirement For: Assess & Educate Safety RN For Eval/Treatment: Yes Physical Therapy For: Evalulation/Treatment Occupational Therapy For: Evaluation/Treatment Speech Language Pathology For: Evaluation/Treatment Home Health Aide For: Self-care FURNACE HELPER For: Community Resources Pt Meets Homebound Status: Poor coordination w/ amb. POST DISCHARGE ORDERS: Activity Instructions for Disc: Activity as tolerated, Other, see below Weight Bearing Status after Di: As tolerated, Other, see below DIET AFTER DISCHARGE: Cardiac Wound/Incision Care: Other, see below CHECKS AFTER DISCHARGE: Checks after discharge: Check blood press - daily, Check blood sugar, ac/hs, Check your Temp as needed, Weigh Yourself Daily TREATMENT/EQUIPMENT ORDERS: Adaptive Equipment Issued: None CERTIFICATION STATEMENT: Certification Statement: Certification Statement: Based on the above finding, I certify that this patient is confined to the home and needs intermittent correction care, physical therapy and/or speech therapy, or continues to need occupational therapy.~ This patient is under my care, and I have initiated the establishment of the plan of care.~ This patient will be followed by myself or a community physician who will periodically review the plan of care. Home Meds Reported Medications Alprazolam (ALPRAZOLAM) 1 Mg Tablet, 1 TAB PO PRN Q6-8HRS PRN for ANXIETY / AGITATION, #60 TAB 09/01/19 Doxepin Hcl (DOXEPIN HCL) 10 Mg Capsule, 1 CAP PO QHS for trouble sleeping, #30 CAP 2 Refills 09/01/19 Ibuprofen (IBUPROFEN) 800 Mg Tablet, 800 MG PO PRN Q6HRS PRN for INFLAMMATION, TAB 04/14/19 Ergocalciferol (Vitamin D2) (VITAMIN D2) 400 Unit Tablet, 400 UNIT PO, TAB 04/14/19 Aspirin (ASPIRIN EC) 325 Mg Tablet.dr, 325 MG PO, TAB.SR 04/14/19 Methylprednisolone (MEDROL) 4 Mg Tab.ds.pk, 1 PKG PO UD, #1 PKG 08/10/16 Butalbital/Aspirin/Caffeine (XKKIOAOFMR-EWJ-YFCIPWER CAP) 1 Each Capsule, 1 EACH PO PRN QID PRN for MIGRAINE HEADACHE, CAP 08/07/16 Meclizine Hcl (MECLIZINE HCL) 25 Mg Tablet, 25 MG PO PRN Q6HRS PRN for vertigo, TAB 08/07/16 Tizanidine Hcl (TIZANIDINE HCL) 4 Mg Tablet, 1 MG PO PRN TID PRN for MUSCLE SPASMS, TAB 08/07/16 Warfarin Sodium (WARFARIN SODIUM) 5 Mg Tablet, 10 MG PO q friday and fri, TAB 08/07/16 Furosemide (FUROSEMIDE) 20 Mg Tablet, 20 MG PO DAILY, TAB 08/07/16 Quinapril Hcl (QUINAPRIL HCL) 20 Mg Tablet, 20 MG PO DAILY, TAB 08/07/16 Isosorbide Mononitrate (ISOSORBIDE MONONITRATE ER) 30 Mg Tab.er.24h, 30 MG PO DAILY, TAB.SR 08/07/16 Escitalopram Oxalate (ESCITALOPRAM OXALATE) 20 Mg Tablet, 20 MG PO DAILY for ANTI-DEPRESSANT, TAB 0 Refills 11/24/14 Warfarin Sodium (WARFARIN SODIUM) 5 Mg Tablet, 1 TAB PO QMTUTHFSAT, #90 TAB 1 Refill 04/12/14 Sotalol Hcl (SOTALOL) 80 Mg Tablet, 40 MG PO BID, #60 TAB 5 Refills 04/12/14 Meclizine Hcl (MECLIZINE HCL) 12.5 Mg Tablet, 25 MG PO TID PRN for MUSCLE SPASMS, #90 TAB 3 Refills 04/12/14 Lipase/Protease/Amylase (ZENPEP DR 25,000 UNITS CAPSULE) 1 Each Capsule., 37480 EACH PO TID 04/12/14 Lansoprazole (LANSOPRAZOLE) 30 Mg Capsule., 1 CAP PO DAILY, #30 CAP 5 Refills 04/12/14 Discontinued Reported Medications Ibuprofen (IBUPROFEN) 800 Mg Tablet, 800 MG PO TID PRN for INFLAMMATION, TAB 09/01/19 Escitalopram Oxalate (LEXAPRO) 20 Mg Tablet, 20 MG PO DAILY for ANTI-DEPRESSANT, TAB 0 Refills 04/14/19 PANCHITO POLLACK III DO Sep 02, 2019 11:12
--- NOTE | 2019-09-02 11:14 | PDOC ---
[facility] PROGRESS NOTE Chief Complaint Chief Complaint Epistaxis New expressive aphasia dizzyness and poor coordination Supratherapeutic INR AFib, chronic diastolic CHF HTN s/p Pacemaker placement. History of Present Illness History of Present Illness 09/02/2019 Patient seen and examined I removed her nasal packing Discussed with RN Chart reviewed Discussed with case management I put discharge orders in for home health 09/01/2019 Patient seen and examined She has problems getting her words Discussed with RN Chart reviewed She still has a packing in her left nares Vitals/I&O Vitals/I&O: Vital Signs Date Time Temp Pulse Resp B/P (MAP) Pulse Ox O2 Delivery O2 Flow Rate FiO2 09/02/19 11:03 98.3 68 17 129/86 (100) 98 Room Air 98.3 I & O 09/01/19 09/01/19 09/02/19 15:00 23:00 07:00 Intake Total 300 ml 340 ml Balance 300 ml 340 ml Physical Exam General: Alert, Cooperative, mild distress, Other (Very anxious that she cannot get her words out) Heart: Regular rate, Normal S1 Lungs: Clear Abdomen: Soft Extremities: No clubbing Skin: No rashes Labs Labs: Laboratory Tests Test 09/02/19 03:30 Triglycerides Level 92 mg/dL (0-150) Cholesterol Level 137 mg/dL (0-200) LDL Cholesterol, Calculated 71 mg/dL (0-100) VLDL Cholesterol, Calculated 18 mg/dL (0-40) Non-HDL Cholesterol Calculated 89 mg/dL (0-129) HDL Cholesterol 48 mg/dL (40-60) Cholesterol/HDL Ratio 2.9 Assessment and Plan Assessmemt and Plan Problems Medical Problems: (1) AMS (altered mental status) Status: Acute (2) Dysphagia Status: Acute (3) Elevated INR Status: Acute Discharge Comment Review of Relevant I have reviewed the following items gege (where applicable) has been applied. Medications: Current Medications Medications (Trade) Dose Ordered Sig/Silverio Route PRN Reason Start Time Stop Time Status Last Admin Dose Admin Acetaminophen/ Butalbital/ Caffeine (Fioricet) 1 tab PRN Q6HRS PRN PO MIGRAINE HEADACHE 09/01/19 11:30 09/02/19 07:15 Alprazolam (Xanax) 0.5 mg PRN Q6HRS PRN PO ANXIETY / AGITATION 7/8/20 13:00 09/01/19 21:10 Justicifation of Admission Dx: Justifications for Admission: Justification of Admission Dx: Yes PANCHITO POLLACK III DO Sep 02, 2019 11:14
--- NOTE | 2019-09-02 12:33 | PDOC ---
PROGRESS NOTES Assessment Problems Medical Problems: (1) AMS (altered mental status) Status: Acute (2) Dysphagia Status: Acute (3) Elevated INR Status: Acute Suspect a small left frontal infarct causing expressive aphasia, no other focal findings on exam other she's had symptoms of dizziness and ataxia. 2 head CTs are negative, though. says she's had this for while, consider frontotemporal dementia, semantic type Pre-existing vertigo problems Prior migraine headaches On chronic warfarin for atrial fibrillation with supratherapeutic INR, sometimes this can induce a paradoxical hypercoaguable state Status-post pacemaker placed in 2011, probably not MRI compatible Plan Establish normal INR, consider use of novel oral anticoagulant agent. Speech therapy and other rehabilitation modalities, going to SNU Does not need statin, stroke is in doubt and lipids are normal F/U c me 2 months Discussed with Objective Vital Signs Date Time Temp Pulse Resp B/P (MAP) Pulse Ox O2 Delivery O2 Flow Rate FiO2 09/02/19 11:03 98.3 68 17 129/86 (100) 98 Room Air 98.3 Intake and Output 09/02/19 07:00 Intake Total 640 ml Balance 640 ml Intake Oral 640 ml # Voids 7 # Bowel Movements 1 PHYSICAL EXAM Alert. Expressive aphasia PERRL. EOMI. CN: no focal findings. Muscle tone: normal. Muscle strength: 5/5 DTR: 2+ Plantar reflex: flexor Gait: not examined in bed. Sensory exam: no abnormal findings. No cerebellar signs elicited. Review of Relevant I have reviewed the following items gege (where applicable) has been applied. Labs Laboratory Tests Test 09/01/19 03:55 09/02/19 03:30 White Blood Count 5.3 x10^3/uL (4.0-11.0) Red Blood Count 3.88 x10^6/uL (3.50-5.40) Hemoglobin 12.4 g/dL (12.0-15.5) Hematocrit 35.3 % (36.0-47.0) Mean Corpuscular Volume 91 fL (79-100) Mean Corpuscular Hemoglobin 32 pg (25-35) Mean Corpuscular Hemoglobin Concent 35 g/dL (31-37) Red Cell Distribution Width 14.2 % (11.5-14.5) Platelet Count 170 x10^3/uL (140-400) Neutrophils (%) (Auto) 62 % (31-73) Lymphocytes (%) (Auto) 29 % (24-48) Monocytes (%) (Auto) 7 % (0-9) Eosinophils (%) (Auto) 2 % (0-3) Basophils (%) (Auto) 0 % (0-3) Neutrophils # (Auto) 3.3 x10^3/uL (1.8-7.7) Lymphocytes # (Auto) 1.5 x10^3/uL (1.0-4.8) Monocytes # (Auto) 0.4 x10^3/uL (0.0-1.1) Eosinophils # (Auto) 0.1 x10^3/uL (0.0-0.7) Basophils # (Auto) 0.0 x10^3/uL (0.0-0.2) Prothrombin Time 18.9 SEC (11.7-14.0) Prothromb Time International Ratio 1.6 (0.8-1.1) Sodium Level 144 mmol/L (136-145) Potassium Level 3.5 mmol/L (3.5-5.1) Chloride Level 109 mmol/L (98-107) Carbon Dioxide Level 28 mmol/L (21-32) Anion Gap 7 (6-14) Blood Urea Nitrogen 15 mg/dL (7-20) Creatinine 0.9 mg/dL (0.6-1.0) Estimated GFR (Cockcroft-Gault) 62.1 Glucose Level 96 mg/dL (70-99) Calcium Level 8.9 mg/dL (8.5-10.1) Triglycerides Level 92 mg/dL (0-150) Cholesterol Level 137 mg/dL (0-200) LDL Cholesterol, Calculated 71 mg/dL (0-100) VLDL Cholesterol, Calculated 18 mg/dL (0-40) Non-HDL Cholesterol Calculated 89 mg/dL (0-129) HDL Cholesterol 48 mg/dL (40-60) Cholesterol/HDL Ratio 2.9 Laboratory Tests Test 09/02/19 03:30 Triglycerides Level 92 mg/dL (0-150) Cholesterol Level 137 mg/dL (0-200) LDL Cholesterol, Calculated 71 mg/dL (0-100) VLDL Cholesterol, Calculated 18 mg/dL (0-40) Non-HDL Cholesterol Calculated 89 mg/dL (0-129) HDL Cholesterol 48 mg/dL (40-60) Cholesterol/HDL Ratio 2.9 Microbiology 08/31/19 Urine Culture - Final, Complete Medications Current Medications Phytonadione 10 mg/Dextrose 51 ml @ 102 mls/hr 1X ONCE IV Last administered on 08/31/19at 13:34; Start 08/31/19 at 12:00; Stop 08/31/19 at 12:29; Status DC Azithromycin 250 ml @ 250 mls/hr 1X ONCE IV Last administered on 08/31/19at 12:00; Start 08/31/19 at 12:00; Stop 08/31/19 at 12:59; Status DC Ondansetron HCl (Zofran) 4 mg PRN Q8HRS PRN IV NAUSEA/VOMITING; Start 08/31/19 at 12:15; Stop 09/01/19 at 12:14; Status DC Furosemide (Lasix) 20 mg DAILY PO Last administered on 09/02/19at 08:27; Start 09/01/19 at 09:00 Isosorbide Mononitrate (Imdur) 30 mg DAILY PO Last administered on 09/02/19at 08:27; Start 09/01/19 at 09:00 Sotalol HCl (Betapace) 40 mg BID PO Last administered on 09/02/19 08:26; Start 08/31/19 at 21:00 Tizanidine HCl (Zanaflex) 1 mg PRN TID PRN PO MUSCLE SPASMS Last administered on 09/01/19at 21:10; Start 08/31/19 at 15:45 Acetaminophen/ Butalbital/ Caffeine (Fioricet) 1 tab PRN Q6HRS PRN PO MIGRAINE HEADACHE Last administered on 09/02/19at 07:15; Start 09/01/19 at 11:30 Non-Formulary Medication (Escitalopram Oxalate ) 20 mg DAILY PO ; Start 09/01/19 at 09:00; Stop 09/01/19 at 11:28; Status DC Pantoprazole Sodium (Protonix) 40 mg DAILYAC PO Last administered on 09/02/19at 07:49; Start 09/01/19 at 07:30 Amylase/Lipase/ Protease (Zenpep 10,000) 2 cap TIDWMEALS PO Last administered on 09/02/19at 08:26; Start 08/31/19 at 17:00 Lisinopril (Prinivil) 20 mg DAILY PO Last administered on 09/02/19at 08:26; Start 09/01/19 at 09:00 Alprazolam (Xanax) 0.5 mg PRN Q6HRS PRN PO ANXIETY / AGITATION Last administered on 09/01/19at 21:10; Start 09/01/19 at 13:00 Active Scripts Active Reported Alprazolam 1 Mg Tablet 1 Tab PO PRN Q6-8HRS PRN Doxepin Hcl 10 Mg Capsule 1 Cap PO QHS Ibuprofen 800 Mg Tablet 800 Mg PO PRN Q6HRS PRN Vitamin D2 (Ergocalciferol (Vitamin D2)) 400 Unit Tablet 400 Unit PO Aspirin Ec (Aspirin) 325 Mg Tablet. 325 Mg PO Medrol (Methylprednisolone) 4 Mg Tab.ds.pk 1 Pkg PO UD Liruohatax-Lvb-Obwsjpgd Cap (Butalbital/Aspirin/Caffeine) 1 Each Capsule 1 Each PO PRN QID PRN Meclizine Hcl 25 Mg Tablet 25 Mg PO PRN Q6HRS PRN Tizanidine Hcl 4 Mg Tablet 1 Mg PO PRN TID PRN Warfarin Sodium 5 Mg Tablet 10 Mg PO Q FRIDAY AND FRI Furosemide 20 Mg Tablet 20 Mg PO DAILY Quinapril Hcl 20 Mg Tablet 20 Mg PO DAILY Isosorbide Mononitrate Er (Isosorbide Mononitrate) 30 Mg Tab.er.24h 30 Mg PO DAILY Escitalopram Oxalate 20 Mg Tablet 20 Mg PO DAILY Warfarin Sodium 5 Mg Tablet 1 Tab PO QMTUTHFSAT Sotalol (Sotalol Hcl) 80 Mg Tablet 40 Mg PO BID Meclizine Hcl 12.5 Mg Tablet 25 Mg PO TID PRN Zenpep 25,000 Units Capsule (Lipase/Protease/Amylase) 1 Each Capsule. 25,00 0 Each PO TID Lansoprazole 30 Mg Capsule. 1 Cap PO DAILY Vitals/I & O Vital Sign - Last 24 Hours 09/01/19 09/01/19 09/01/19 09/01/19 15:09 19:55 20:15 21:00 Temp 98.4 97.6 98.4 97.6 Pulse 65 91 91 Resp 17 16 B/P (MAP) 158/59 (92) 148/86 (106) 148/86 Pulse Ox 98 95 O2 Delivery Room Air Room Air Room Air 09/01/19 09/02/19 09/02/19 09/02/19 23:13 03:42 07:14 07:52 Temp 98.5 98.5 98.5 98.5 Pulse 66 61 81 Resp 16 14 17 B/P (MAP) 146/82 (103) 157/87 (110) Pulse Ox 98 98 O2 Delivery Room Air Room Air Room Air Room Air 09/02/19 09/02/19 09/02/19 09/02/19 08:26 08:26 08:27 11:03 Temp 98.3 98.3 Pulse 81 81 81 68 Resp 17 B/P (MAP) 157/87 157/87 157/87 129/86 (100) Pulse Ox 98 O2 Delivery Room Air Intake and Output 09/01/19 09/01/19 09/02/19 15:00 23:00 07:00 Intake Total 300 ml 340 ml Balance 300 ml [address] Head without contrast 09/02/2019 8:00 AM Indication: Reason: Suspect left frontal stroke, aphasia, can't have MRI, F/U from 08/30 study / Spl. Instructions: / History: Comparison: CT head August 31, 2019. CT head June 25, 2019. Findings: No intracranial hemorrhage is seen. No evidence of subacute territorial infarct is identified. Mild patchy areas of deep white matter hypoattenuation are seen, which while nonspecific, most commonly reflect changes of chronic small vessel disease. Mild age-related atrophic changes are noted. No abnormal extra axial fluid collection is identified. No mass effect or midline shift is seen. No acute osseous abnormalities are seen. Impression: 1. No acute intracranial process identified 2. Mild senescent atrophic changes, and mild of chronic small vessel disease as described Justicifation of Admission Dx: Justifications for Admission: Justification of Admission Dx: Yes BENOIT RUFFIN MD Sep 02, 2019 12:33
--- NOTE | 2019-09-02 13:50 | NUR ---
SW following. Spoke with RN and reviewed chart. Coordinated care with Dr. Card. Pt to discharge home today with HH from [facility]. ADALBERTO phoned and faxed discharge orders and clinicals to [facility], , (fax). Spoke with pt who has changed her mind about SNU referral. Pt is agreeable to . Pt lives with her dtr and son as well as her significant other that is on hospice. Pt asked this SW to coordinate discharge and care with her sister Lisa. ADALBERTO called Lisa at [phone]. Lisa agreeable to for pt and asked that her number be provided to [facility] for scheduling. SW provided. Pt to discharge home today on room air and oral medications via transportation from Lisa. No further SW needs at this time.
[2019-09-02 15:02] VITALS: BP 125/90
--- NOTE | 2019-09-02 15:07 | NUR ---
Pt left unit at approx 1505 by wheelchair via private vehicle. Pt accompanied by sister, Lisa. Pt's IV removed with no complications. Stroke education packet provided to pt and thoroughly discussed in detail with pt and her sister. Additional education in regards to stroke and warfarin therapy also discussed with pt and sister. Additional questions addressed at time of discharge.
--- NOTE | 2019-09-03 14:10 | DS ---
DATE OF DISCHARGE: 09/02/2019 ADMISSION DIAGNOSES: Elevated INR, epistaxis, new expressive aphasia. DISCHARGE DIAGNOSES: Resolving epistaxis, resolving elevated INR, resolving expressive aphasia, suspect small left frontal infarct per Dr. Coleman. CONSULTS: Richard Coleman MD. PROCEDURES: None. HOSPITAL COURSE: The patient is a pleasant elderly female who basically presented with epistaxis, was noted to have a high INR of 7.6. She was admitted. We held her Coumadin. We consulted Neurology because she also has some expressive aphasia. Her left naris was packed in the ER. Yesterday, I saw and examined her, she was at her baseline. She was starting to speak a little better. I removed the naris packing. Heart tones were normal. Lungs were clear. Overall, she looked great. We discharged to home with close outpatient followup. DISPOSITION: Home. ACTIVITY: As tolerated. DIET: Low sodium. MEDICATIONS: Please see the MRAD. TOTAL TIME: 33 minutes. PANCHITO POLLACK DO DR: MARCO/martha JOB#: [id number] / [id number]
== END 2019-09-02 15:11 | disposition home health service (06) | DRG 917 ==
LOC: ER 10:20 → ED HOLD 11:29 → 6 SOUTH 14:05
PROVIDERS: ADMIT Internal Medicine; ATTEND Internal Medicine
PROC: 2Y41X5Z Packing of Nasal Region using Packing Material (ICD-10-PCS; principal; 2019-08-31)
DX: T42.4X1A Poisoning by benzodiazepines, accidental (unintentional), initial encounter (principal); G92 Toxic encephalopathy; I50.32 Chronic diastolic (congestive) heart failure; R47.01 Aphasia; Z20.828 Contact with and (suspected) exposure to other viral communicable diseases; E78.5 Hyperlipidemia, unspecified; I11.0 Hypertensive heart disease with heart failure; I48.91 Unspecified atrial fibrillation; I73.9 Peripheral vascular disease, unspecified; R04.0 Epistaxis; R13.10 Dysphagia, unspecified; R79.1 Abnormal coagulation profile; F32.9 Major depressive disorder, single episode, unspecified; F41.9 Anxiety disorder, unspecified; G43.909 Migraine, unspecified, not intractable, without status migrainosus; K21.9 Gastro-esophageal reflux disease without esophagitis; K57.90 Diverticulosis of intestine, part unspecified, without perforation or abscess without bleeding; M19.90 Unspecified osteoarthritis, unspecified site; M32.9 Systemic lupus erythematosus, unspecified; Y92.89 Other specified places as the place of occurrence of the external cause; Z79.01 Long term (current) use of anticoagulants; Z87.891 Personal history of nicotine dependence; Z90.49 Acquired absence of other specified parts of digestive tract; Z90.710 Acquired absence of both cervix and uterus; Z95.0 Presence of cardiac pacemaker; Z88.1 Allergy status to other antibiotic agents; Z88.5 Allergy status to narcotic agent; Z88.0 Allergy status to penicillin; Z88.8 Allergy status to other drugs, medicaments and biological substances
CPT/HCPCS: 36415; 70450; 70486; 71045; 80048; 80053; 80061; 81001; 84484; 85025; 85610; 87086; 93005; 93880; 96365; 96367; J0456; J3430; J7060; 92523-GN; 92610-GN; 97530-GO; 97530-GP; 97535-GO; 99285-25; G0378; U0003-CS

== ENCOUNTER → 2020-12-21 | Outpatient (CLI) | payer MEDICARE ==
[~2020-12-21] MED LIST changes: +DOXE10CA PO; -ISOS30TA4 PO; +ISOS30TA68 PO; -MECL12.573 PO; +MECL12.582 PO; +TIZA-75 PO; -TIZA4TAB2 PO
--- NOTE | 2020-12-22 12:21 | CARD ---
MR#: [id number] Date of Study: 12/21/2020 Ordering Physician: BROOKLYNN BELLE, Referring Physician: BROOKLYNN BELLE, Tech: Violeta German [facility] APPROVED REPORT EXAM: Two-dimensional and M-mode echocardiogram with Doppler and color Doppler. Other Information Quality : AverageHR: 89bpm INDICATION Atrial Fibrillation 2D DIMENSIONS RVDd3.2 (2.9-3.5cm)Left Atrium(2D)2.9 (1.6-4.0cm) IVSd1.0 (0.7-1.1cm)Aortic Root(2D)3.0 (2.0-3.7cm) LVDd5.2 (3.9-5.9cm)LVOT Diameter2.1 (1.8-2.4cm) PWd1.1 (0.7-1.1cm)LVDs3.3 (2.5-4.0cm) FS (%) 36.2 %SV86.4 ml LVEF(%)65.4 (>50%) Aortic Valve AoV Peak Robert.103.6cm/sAoV VTI22.2cm AO Peak GR.4.3mmHgLVOT Peak Robert.92.5cm/s LVOT VTI 17.90cmAO Mean GR.2mmHg [place]OL[place]ANG (VMAX)2.54oj4XKY (VTI)2.71cm2 Mitral Valve MV E Yylywubd32.3cm/sMV DECEL [id number] MV A Agvcotey98.6cm/sMV E Mean Gr.1mmHg MV SKE78qtX/A Ratio0.7 MVA (PHT)2.78cm2 TDI E/Lateral E'5.9E/Medial E'9.2 Pulmonary Valve PV Peak Pkdswrhf18.0cm/sPV Peak Grad.2mmHg Tricuspid Valve TR P. [id number]/sTR Peak Gr.18mmHg Pulmonary Vein S1 Cfgjddag11.4cm/sD2 Bmipydvf90.9cm/s PVa [id number] LEFT VENTRICLE The left ventricle is normal size. There is borderline to mild concentric left ventricular hypertroph y. The left ventricular systolic function is normal and the ejection fraction is within normal range. The Ejection Fraction is 50-55%. There is normal LV segmental wall motion. Transmitral Doppler flow pattern is Grade I-abnormal relaxation pattern. RIGHT VENTRICLE The right ventricle is normal size. There is normal right ventricular wall thickness. The right ventr icular systolic function is normal. ATRIA The left atrium size is normal. The right atrium size is normal. The interatrial septum is intact wit h no evidence for an atrial septal defect or patent foramen ovale as noted on 2-D or Doppler imaging. AORTIC VALVE The aortic valve is normal in structure and function. Doppler and Color Flow revealed trace aortic re gurgitation. There is no significant aortic valvular stenosis. Calculated aortic valve area is 2.47 c m2 with maximum pressure gradient of 6 mmHg and mean pressure gradient of 3 mmHg. MITRAL VALVE The mitral valve is normal in structure and function. There is no evidence of mitral valve prolapse. There is no mitral valve stenosis. Doppler and Color-flow revealed trace mitral regurgitation. TRICUSPID VALVE The tricuspid valve is normal in structure and function. Doppler and Color Flow revealed trace tricus pid regurgitation with an estimated PAP of 25 mmHg. There is no tricuspid valve stenosis. PULMONIC VALVE Doppler and Color Flow revealed mild pulmonic valvular regurgitation. There is no pulmonic valvular s tenosis. GREAT VESSELS The aortic root is normal in size. The IVC is dilated at 2.2 cm. PERICARDIAL EFFUSION There is no evidence of significant pericardial effusion. Critical Notification Critical Value: No <Conclusion> The left ventricular systolic function is normal and the ejection fraction is within normal range. Th e Ejection Fraction is 50-55%. There is normal LV segmental wall motion. Signed by : Asim Burns, Electronically Approved : 12/22/2020 12:21:33
== END ==
LOC: ECHO 14:54
PROVIDERS: ATTEND Internal Medicine Cardiovascular Disease
DX: I37.1 Nonrheumatic pulmonary valve insufficiency (principal); I48.0 Paroxysmal atrial fibrillation
CPT/HCPCS: 93306